=== PATIENT | female | born 2000 | race Caucasian/White ===

== ENCOUNTER 2023-03-02 19:38 | Emergency (ER) | payer OTHER, SELFPAY ==
[2023-03-02 19:39] VITALS: BP 120/81; PULSE 104; RESP 15; TEMP 36.5; O2SAT 100; BMI 20.7
--- NOTE | 2023-03-02 20:08 | US_ITS ---
STUDY: FIRST TRIMESTER OBSTETRICAL ULTRASOUND REASON FOR EXAM: Female, 22 years old vaginal bleeding LMP: 01/20/2023 TECHNIQUE: Transvaginal TECHNICAL QUALITY: Adequate. PRIOR ULTRASOUND: None. FINDINGS: There is visualization of a single gestational sac in a normal intrauterine position. The mean sac diameter (MSD) measures 18 mm, indicating an estimated gestational age (EGA) of 6 weeks, 5 days. The gestational sac shape is within normal limits. There is a visualized yolk sac. The yolk sac measures 3 mm. The placenta is non-visualized. There is visualization of a live embryo. The crown-rump length (CRL) measures 3 mm, indicating an estimated gestational age (EGA) of 6 weeks, 1 days. There is demonstrated cardiac activity with a heart rate of 112 bpm. The estimated gestation age (EGA) by LMP is 5 weeks, 6 days. The estimated date of delivery (ROBBIE) by LMP is 10/27/2023. The estimated gestation age (EGA) by US is 6 weeks, 3 days. The estimated date of delivery (ROBBIE) by US is 10/23/2023. The uterus measures 8.6 x 6.3 x 4.8 cm. There is no demonstrated uterine fibroid. The cervix is closed. The right ovary measures 1.6 x 1.8 x 3.2 cm. There is no right ovarian cyst. There is no visualized right adnexal mass or complex lesion. The left ovary measures 3.9 x 4.3 x 3.8 cm. 3.8 cm oval anechoic mass with increased through transmission consistent with theca lutein cyst. There is no visualized left adnexal mass or complex lesion. There is no fluid in the cul de sac. US/Transvaginal w/Preg US IMPRESSION: 1. Living intrauterine of 6 weeks 3 days as described above. 2. 3.8 cm left ovarian theca lutein cyst. Electronically Signed: Geoffrey Richard MD at 21:30 EST ,
--- NOTE | 2023-03-02 20:18 | ED.VIS.FEGU ---
HPI <MCKENNA Ocasio - Last Filed: 03/02/23 21:24> HPI - Female History of Present Illness Chief Complaint: Vag Bld, Preg Narrative Narrative: Patient is a 22-year-old female who is currently getting worked up for Von Willebrand disease presenting to the emergency department with complaints of lower abdominal pain, back pain as well as spotting. Patient states that she is 6 weeks , she however she is seeing [facility]. Patient states for the last 3 to 4 days has been having lower abdominal pain worse on the right side, as well is spotting that began today. She denies any significant bleeding however patient called her [employer] and is here for evaluation. She denies any fever or chills, chest pain or shortness of breath patient is 1, para 0, abortions 0. PFSH <MCKENNA Ocasio - Last Filed: 03/02/23 21:24> [facility] Medical History no medical history Home Medications NK 03/02/23 [History Last Taken Unknown] Allergy/AdvReac Type Severity Reaction Status Date / Time erythromycin base AdvReac Vomiting Verified 03/02/23 19:43 Surgical History no surgical history Social History Smoking Status: Never smoker ROS <MCKENNA Ocasio - Last Filed: 03/02/23 21:24> ROS ED ROS Narrative Constitutional: Negative for fever, chills, weight loss, weakness Eyes: Negative for vision loss, vision change, double vision ENT: Negative for any sore throat, ear pain, congestion Cardiovascular: Negative for any chest pain, tightness, palpitations Respiratory: Negative for any cough, sputum production, hemoptysis, dyspnea, dyspnea on exertion, orthopnea Gastrointestinal: Negative for any nausea, vomiting, diarrhea, constipation, blood in stool, blood in vomit. Positive lower right abdominal pain, flank pain : Negative for any urinary frequency, dysuria, retention, blood in urine. Positive vaginal bleeding Muscle skeletal: Negative for any myalgias, arthralgias, neck pain, back pain Neurological: Negative for any headache, syncope, paresthesias, dizziness Skin: Negative for any rashes, lumps, itching, abrasions, lacerations Psychiatric: Negative for any depression, anxiety, stress, suicidal ideation, homicidal ideation Hematologic: Negative for any easy bruising, excessive bruising, easy bleeding Allergies: Negative for any eczema, hives, rash EXAM <MCKENNA Ocasio - Last Filed: 03/02/23 21:24> Physical Exam Narrative Exam Narrative: Vital signs reviewed. HEET: Head normocephalic atraumatic, TMs clear bilaterally. Posterior pharynx is clear, moist mucous membranes. Nares clear bilaterally. Neck: Supple with no lymphadenopathy or tenderness. No signs of meningismus. Cardiac: Regular rate and rhythm no murmurs gallops or rubs, equal peripheral pulses bilaterally. Respiratory: Lungs clear to auscultation bilaterally. No chest tenderness. Abdomen: Soft, nontender, nondistended. No abdominal bruit or pulsatile masses. No hepatosplenomegaly Extremities: No peripheral edema, no signs of gross trauma or deformity. Active full range of motion of all extremities. Neuro: Cranial nerves II through XII intact, no focal neurological deficits. Skin: Clean dry and intact with no rash, purpura, petechiae, vesicles or pustules. Backs/flank: No CVA tenderness, no midline spinal tenderness, no deformity. Psych: Normal mood and affect. No SI, HI or acute psychosis. Const Vital Signs: 03/02/23 19:39 Temperature 97.7 F L Temperature Source Temporal Pulse Rate 104 H Respiratory Rate 15 Blood Pressure 120/81 H Blood Pressure Mean 94 Pulse Ox 100 Oxygen Delivery Method Room Air Positive well nourished and well developed General Appearance ED: well developed <Dr. Chris Harrison MD - Last Filed: 03/02/23 21:46> Physical Exam Const Vital Signs: 03/02/23 19:39 Temperature 97.7 F L Temperature Source Temporal Pulse Rate 104 H Respiratory Rate 15 Blood Pressure 120/81 H Blood Pressure Mean 94 Pulse Ox 100 Oxygen Delivery Method Room Air MDM <MCKENNA Ocasio - Last Filed: 03/02/23 21:24> [facility] Lab Data Labs: Laboratory Results - last 24 hr 03/02/23 20:25 WBC 5.3 RBC 4.53 Hgb 13.6 Hct 38.9 MCV 85.9 MCH 30.0 MCHC 35.0 RDW Std Deviation 35.8 RDW Coeff of [place] 11.4 L Plt Count 194 MPV 10.4 Immature Gran % (Auto) 0.800 Neut % (Auto) 76.3 H Lymph % (Auto) 15.4 L [place] % (Auto) 6.3 Eos % (Auto) 0.6 Baso % (Auto) 0.6 Absolute Neuts (auto) 4.0 Absolute Lymphs (auto) 0.81 L Nucleated RBC % 0 PT 15.1 H INR 1.2 HCG, Quant 63898 H Urine Color Yellow Urine Clarity Clear Urine pH 7.0 Ur Specific [place] 1.010 Urine Protein Negative Urine Glucose (UA) Normal Urine Ketones Negative Urine Occult Blood Negative Urine Nitrite Negative Urine Bilirubin Negative Urine Urobilinogen Normal Ur Leukocyte Esterase 25 H Urine RBC 0 SEEN Urine WBC 0-5 SEEN Ur Squamous Epith Cells 0-5 SEEN Urine Bacteria 0 SEEN Urine Mucus 0 SEEN Blood Type A POSITIVE Radiography Diagnostic Testing: Clinical Impression(s) from Imaging Studies Obstetrics Ultrasound 03/02/23 20:08 IMPRESSION: 1. Living intrauterine of 6 weeks 3 days as described above. 2. 3.8 cm left ovarian theca lutein cyst. Electronically Signed: Geoffrey Richard MD at 21:30 EST , Treatment and Re-Evaluation Narrative: Patient appears generally well, patient appears nontoxic, vital signs are stable. Presenting to the emergency department with lower abdominal pain, vaginal bleeding, patient is currently 6 weeks . Differential diagnosis includes intrauterine vaginal bleeding, threatened miscarriage, tubal . Patient will receive basic laboratory values, PT/INR just because the patient is currently getting worked up for a type of hemophilia. Patient will receive blood type to see if the patient needs RhoGAM, ultrasound transvaginal to rule out any ectopic . Patient's urinalysis was 25 leukocyte Estrace, negative for any bacteria, no nitrites. This was sent for culture. Patient's laboratory values showed normal CBC, PT/INR was within normal limits, hCG quant was 41,339. Patient's A positive blood type. Patient did receive her transvaginal ultrasound. <Dr. Chris Harrison MD - Last Filed: 03/02/23 21:46> [facility] Lab Data Attestation: I reviewed the patient's lab results. Labs: Laboratory Results - last 24 hr 03/02/23 20:25 WBC 5.3 RBC 4.53 Hgb 13.6 Hct 38.9 MCV 85.9 MCH 30.0 MCHC 35.0 RDW Std Deviation 35.8 RDW Coeff of [place] 11.4 L Plt Count 194 MPV 10.4 Immature Gran % (Auto) 0.800 Neut % (Auto) 76.3 H Lymph % (Auto) 15.4 L [place] % (Auto) 6.3 Eos % (Auto) 0.6 Baso % (Auto) 0.6 Absolute Neuts (auto) 4.0 Absolute Lymphs (auto) 0.81 L Nucleated RBC % 0 PT 15.1 H INR 1.2 HCG, Quant 74016 H Urine Color Yellow Urine Clarity Clear Urine pH 7.0 Ur Specific [place] 1.010 Urine Protein Negative Urine Glucose (UA) Normal Urine Ketones Negative Urine Occult Blood Negative Urine Nitrite Negative Urine Bilirubin Negative Urine Urobilinogen Normal Ur Leukocyte Esterase 25 H Urine RBC 0 SEEN Urine WBC 0-5 SEEN Ur Squamous Epith Cells 0-5 SEEN Urine Bacteria 0 SEEN Urine Mucus 0 SEEN Blood Type A POSITIVE Radiography Diagnostic Testing: Clinical Impression(s) from Imaging Studies Obstetrics Ultrasound 03/02/23 20:08 IMPRESSION: 1. Living intrauterine of 6 weeks 3 days as described above. 2. 3.8 cm left ovarian theca lutein cyst. Electronically Signed: Geoffrey Richard MD at 21:30 EST , Treatment and Re-Evaluation Narrative: Patient appears generally well, patient appears nontoxic, vital signs are stable. Presenting to the emergency department with lower abdominal pain, vaginal bleeding, patient is currently 6 weeks . Differential diagnosis includes intrauterine vaginal bleeding, threatened miscarriage, tubal . Patient will receive basic laboratory values, PT/INR just because the patient is currently getting worked up for a type of hemophilia. Patient will receive blood type to see if the patient needs RhoGAM, ultrasound transvaginal to rule out any ectopic . Patient's urinalysis was 25 leukocyte Estrace, negative for any bacteria, no nitrites. This was sent for culture. Patient's laboratory values showed normal CBC, PT/INR was within normal limits, hCG quant was 41,339. Patient's A positive blood type. Patient did receive her transvaginal ultrasound. Hunter: I have personally performed a face to face assessment of the patient and have reviewed the VANGIE Note. I performed a substantive portion of the visit including all aspects of the following. My rock findings include: History is with last known menstrual period starting on 01/20/2023, has been having some cramping lately off and on and now bleeding spotting today. No syncope or near syncope, vomiting, fevers or chills. Exam is well-appearing benign abdomen no tachycardia. Medical Decison Making quantitative hCG is high, ultrasound obtained shows single live IUP with heart tones 112, size is consistent with 6-week 3-day which is consistent with her dates overall. Blood type is a positive. Therefore RhoGAM not indicated. At this time patient stable for close outpatient follow-up she already has an appointment with [facility]. Other additions or changes: [None] Discharge Plan Triage Chief Complaint: Vag Bld, Preg ED Midlevel Provider: Nam Henry ED Provider: Chris Harrison Dx/Rx/DC Orders Clinical Impression: Threatened in first trimester Instructions: Miscarriage Threatened Prescriptions: No Action NK Primary Care Provider: Marko Bassett Referrals: Marko Bassett DO [Primary Care Provider] - Quynh Billy MD [Med Staff - Active Staff] - Keep Renaldo appointment Disposition Disposition: Home, Self Care
[2023-03-02 20:33] LABS: Bacteria 0 SEEN /hpf (None Seen); Mucous, Urine 0 SEEN /hpf (<or=2+); Red Blood Cells-Urine 0 SEEN /hpf (0-5)
[2023-03-02 20:41] LABS: Color, Urine Yellow (Yellow); Glucose, Dipstick Normal (Normal); Ketone-Dipstick Negative (Negative); Leukocyte Esterase-Dipstick 25 /ul (Negative); Nitrite-Dipstick Negative (Negative); Occult Blood-Urine Negative /ul (Negative); Protein-Dipstick Negative (Negative); Urine Bilirubin Dipstick Negative (Negative); Urine Clarity Clear (Clear); Urine Urobilinogen Normal (Normal)
[2023-03-02 20:45] LABS: Absolute Lymphocyte Count 0.81 X10^3/uL (0.83-4.51); Basophil# 0.03 X10^3/uL; Basophil% 0.6 % (0-1); Eosinophil# 0.03 X10^3/uL; Eosinophils% 0.6 % (0-5); Hematocrit 38.9 % (37-47); Hemoglobin 13.6 g/dL (12.0-15.0); Lymphocyte # 0.81 X10^3/ul (0.83-4.51); Lymphocyte % 15.4 % (19-41); Mean Corpuscular Volume 85.9 fL (81-99); Mean Platelet Vol. 10.4 fl (6.2-12.0); Monocyte# 0.33 X10^3/uL; Monocyte% 6.3 % (0-10); NRBC Flagged by Analyzer 0 % (0-5); Neutrophil # 4.01 X10^3/uL (2.7-7.7); Neutrophil % 76.3 % (47-70); Platelet Count 194 K/mm3 (150-450); RBC Distribution Width CV 11.4 % (11.6-14.6); RBC Distribution Width SD 35.8 fl (35.1-43.9); Red Blood Count 4.53 M/mm3 (4.2-5.4); White Blood Count 5.3 K/mm3 (4.4-11.0)
[2023-03-02 20:51] LABS: Squamous Epithelial Cells - UA 0-5 SEEN /hpf (5-10); White Blood Cells 0-5 SEEN /hpf (0-5)
[2023-03-02 21:04] LABS: International Normalized Ratio 1.2; Prothrombin Time (Protime)PT. 15.1 SECONDS (11.7-14.9)
[2023-03-02 21:17] LABS: hCG Titer Quant., Serum 41339 mIU/mL (1-3)
[2023-03-02 21:54] VITALS: BP 118/76; PULSE 79; RESP 18; O2SAT 100
== END 2023-03-02 21:55 | disposition home or self-care (01) ==
PROVIDERS: Nurse Practitioner; Emergency Provider Emergency Medicine; PCP Family Medicine; Visit Provider Emergency Medicine
DX: O20.0 Threatened abortion (principal); Z3A.01 Less than 8 weeks gestation of pregnancy
CPT/HCPCS: 76817; 81001; 84702; 85025; 85610; 86900; 86901; 93976; 99282; A4216

== ENCOUNTER → 2023-03-15 | Outpatient (CLI) | payer OTHER, SELFPAY ==
[2023-03-15 15:52] LABS: Absolute Lymphocyte Count 1.44 X10^3/uL (0.83-4.51); Absolute Neutrophil Count 5.5 X10^3/uL (2.0-7.7); Basophil# 0.08 X10^3/uL; Eosinophil# 0.11 X10^3/uL; Eosinophils% 1.4 % (0-5); Hematocrit 39.1 % (37-47); Hemoglobin 13.2 g/dL (12.0-15.0); Lymphocyte # 1.44 X10^3/ul (0.83-4.51); Lymphocyte % 18.7 % (19-41); Mean Corp Hgb Conc 33.8 g/dL (32-36); Mean Corpuscular Hgb 29.1 pg (27.0-32.0); Mean Corpuscular Volume 86.1 fL (81-99); Mean Platelet Vol. 10.5 fl (6.2-12.0); Monocyte# 0.54 X10^3/uL; NRBC Flagged by Analyzer 0 % (0-5); Neutrophil # 5.45 X10^3/uL (2.7-7.7); Platelet Count 207 K/mm3 (150-450); RBC Distribution Width CV 11.3 % (11.6-14.6); RBC Distribution Width SD 35.4 fl (35.1-43.9); Red Blood Count 4.54 M/mm3 (4.2-5.4); White Blood Count 7.7 K/mm3 (4.4-11.0)
[2023-03-15 18:21] LABS: HIV - WCH Non-Reactive (Nonreactive); Hepatitis B Surface Antigen Non-Reactive (Nonreactive); Hepatitis C Antibody Non-Reactive (Nonreactive); Rubella IgG Reactive (Nonreactive); Syphilis Antibodies Equiv
[2023-03-19 05:08] LABS: Chlamydia By Nucleic Acid AMP Negative (Negative); Gonococcus By Nucleic Acid AMP Negative (Negative)
== END | disposition home or self-care (01) ==
PROVIDERS: PCP Family Medicine; Referring Provider Registered Nurse; Visit Provider Registered Nurse
DX: Z34.90 Encounter for supervision of normal pregnancy, unspecified, unspecified trimester (principal)
CPT/HCPCS: 36415; 85025; 86703; 86762; 86780; 86803; 86850; 86900; 86901; 87086; 87088; 87340; 87491; 87591

== ENCOUNTER → 2023-06-04 | Outpatient (CLI) | payer SELFPAY, OTHER ==
--- NOTE | 2023-06-04 15:26 | US_ITS ---
STUDY: SECOND AND THIRD TRIMESTER OBSTETRICAL ULTRASOUND REASON FOR EXAM: Female, 22 years old Anatomy LMP: Unknown. TECHNIQUE: Transabdominal and Transvaginal TECHNICAL QUALITY: Adequate. PRIOR ULTRASOUND: None. FINDINGS: There is a single intrauterine fetus. The fetus is in a transverse lie with the head on the maternal right side. There is demonstrated cardiac activity with a heart rate of 157 bpm. There is a normal amniotic fluid volume. The largest amniotic fluid pocket measures 7.0 x 2.4 cm. The placenta is posterior in location and is not low lying. There are Grade 0 placental changes. The cervix measures 3.7 cm in length on transvaginal exam. The adnexal regions are not visualized. BIOMETRY: BPD: 4.7 cm: 20 weeks, 1 days HC: 17.5 cm: 20 weeks, 0 days AC: 13.5 cm: 19 weeks, 0 days FL: 2.7 cm: 18 weeks, 2 days age by current US: 19 weeks, 1 days. ROBBIE by current US: October 28, 2023. Estimated weight: 260 grams, +/- 39 grams. ANATOMY: Gender: Female Cranium: Normal lateral ventricles. Normal choroid plexus. Normal cerebellum. Normal cisterna magna. Normal face, nose and lips. Chest: Normal 4-chamber heart. Abdomen/Pelvis: Normal diaphragm. Normal stomach. Normal abdominal wall. Normal cord insertion. Normal 3 vessel cord. Normal kidneys. Normal bladder. Spine: Normal cervical spine. Normal thoracic spine. Normal lumbar spine. Normal sacrum. Extremities: Normal bilateral upper extremities. Normal bilateral lower extremities. IMPRESSION: Single intrauterine gestation 19 weeks 1 day with estimated due date October 28, 2023. No anomalies on routine anatomic survey. Electronically Signed: Chris Carrasco MD at 18:11 EDT , STUDY: SECOND AND THIRD TRIMESTER OBSTETRICAL ULTRASOUND REASON FOR EXAM: Female, 22 years old Anatomy LMP: Unknown. TECHNIQUE: Transabdominal and Transvaginal TECHNICAL QUALITY: Adequate. PRIOR ULTRASOUND: None. FINDINGS: There is a single intrauterine fetus. The fetus is in a transverse lie with the head on the maternal right side. There is demonstrated cardiac activity with a heart rate of 157 bpm. There is a normal amniotic fluid volume. The largest amniotic fluid pocket measures 7.0 x 2.4 cm. The placenta is posterior in location and is not low lying. There are Grade 0 placental changes. The cervix measures 3.7 cm in length on transvaginal exam. The adnexal regions are not visualized. BIOMETRY: BPD: 4.7 cm: 20 weeks, 1 days HC: 17.5 cm: 20 weeks, 0 days AC: 13.5 cm: 19 weeks, 0 days FL: 2.7 cm: 18 weeks, 2 days age by current US: 19 weeks, 1 days. ROBBIE by current US: October 28, 2023. Estimated weight: 260 grams, +/- 39 grams. ANATOMY: Gender: Female Cranium: Normal lateral ventricles. Normal choroid plexus. Normal cerebellum. Normal cisterna magna. Normal face, nose and lips. Chest: Normal 4-chamber heart. Abdomen/Pelvis: Normal diaphragm. Normal stomach. Normal abdominal wall. Normal cord insertion. Normal 3 vessel cord. Normal kidneys. Normal bladder. Spine: Normal cervical spine. Normal thoracic spine. Normal lumbar spine. Normal sacrum. Extremities: Normal bilateral upper extremities. Normal bilateral lower extremities. US/OB Anatomy w/ Transvaginal
== END | disposition home or self-care (01) ==
LOC: US 15:25
PROVIDERS: PCP Family Medicine; Referring Provider Obstetrics & Gynecology; Visit Provider Obstetrics & Gynecology
DX: Z34.90 Encounter for supervision of normal pregnancy, unspecified, unspecified trimester (principal)
CPT/HCPCS: 76805; 76817

== ENCOUNTER 2023-07-10 20:35 | Outpatient (CLI) | payer OTHER, SELFPAY ==
[2023-07-10 20:47] VITALS: PULSE 126; O2SAT 100
[2023-07-10 20:48] VITALS: RESP 16; TEMP 37.1
[2023-07-10 20:53] VITALS: BP 130/82; PULSE 116
[2023-07-10 20:56] VITALS: TEMP 37.1
[2023-07-10] MEDS: cycloBENZAPRine HCl 5 MG TABLET PO (21:29)
[2023-07-10] MEDS: SimETHICONE 80 MG Chewable Tablet PO (21:29)
[2023-07-10 21:31] LABS: Absolute Lymphocyte Count 1.31 X10^3/uL (0.83-4.51); Absolute Neutrophil Count 4.5 X10^3/uL (2.0-7.7); Basophil# 0.05 X10^3/uL; Basophil% 0.8 % (0-1); Eosinophils% 1.5 % (0-5); Hematocrit 34.1 % (37-47); Hemoglobin 11.5 g/dL (12.0-15.0); Lymphocyte # 1.31 X10^3/ul (0.83-4.51); Lymphocyte % 19.9 % (19-41); Mean Corp Hgb Conc 33.7 g/dL (32-36); Mean Corpuscular Hgb 30.8 pg (27.0-32.0); Mean Corpuscular Volume 91.4 fL (81-99); Mean Platelet Vol. 9.9 fl (6.2-12.0); Monocyte# 0.54 X10^3/uL; Monocyte% 8.2 % (0-10); NRBC Flagged by Analyzer 0 % (0-5); Neutrophil # 4.51 X10^3/uL (2.7-7.7); Neutrophil % 68.7 % (47-70); Platelet Count 163 K/mm3 (150-450); RBC Distribution Width CV 12.3 % (11.6-14.6); RBC Distribution Width SD 41.2 fl (35.1-43.9); Red Blood Count 3.73 M/mm3 (4.2-5.4); White Blood Count 6.6 K/mm3 (4.4-11.0)
[2023-07-10 21:48] VITALS: BMI 23.4
[2023-07-10 21:55] LABS: ALB/GLOB Ratio 0.9 RATIO (0.9-2.4); AST(SGOT) 24 U/L (15-37); Alanine Aminotransfer ALT/SGPT 31 U/L (13-56); Albumin, Serum 3.1 g/dL (3.2-5.0); Alkaline Phosphatase 52 U/L (45-117); Amylase 86 U/L (25-115); Anion Gap 7 (5-15); BUN 11 mg/dL (7-18); BUN/Creat Ratio 13.8 RATIO (10-20); Calcium,Total 8.8 mg/dL (8.5-10.1); Chloride 111 mmol/L (98-107); EST Glomerular Filtration Rate 97 mL/min (>60); Est Glom Filt Rate - Afr Amer 118 mL/min (>60); Estimated Creatinine Clearance 96.86 ml/min; Globulin 3.3 g/dL (2.2-4.2); Glucose 94 mg/dL (74-106); Lipase 45 U/L (13-75); Potassium 3.4 mmol/L (3.5-5.1); Protein, Total 6.4 g/dL (6.4-8.2); Sodium Level 141 mmol/L (136-145)
--- NOTE | 2023-07-10 23:43 | OB.TRI.HP_ITS ---
HPI - General General Date of Admission: 07/10/23 HPI Narrative ELYSE BOUDREAUX, is a 22 y/o @ 28 weeks 3 days F who presents to L&D with periumbilical (belly button) pain that started today and got progressively worse. She states that she was at a wedding all day. The nurse that is taking care of her states that she does not have tenderness to palpation on exam and the pain is more reported to be left upper quadrant than periumbilical. She denies vomiting, diarrhea, nausea, difficulty breathing, or decreased movement. She also denies loss of fluid or vaginal bleeding. orders for cbc, cmp, amylase, and lipase were given to the nurse to collect stat and to perform an NST. The patient was also offered Flexeril for possible abdominal wall strain and simethicone for possible gas. Maternal Data Information ROBBIE Calculator Estimated Delivery Date Method Current WG Current Estimate 10/27/23 LMP (Certain) 24w 6d PFSH PFSH Home Medications ?Medication ?Instructions ?Recorded ?Last Taken ?Type vitamins no.163-iron 1 tab PO DAILY 03/12/23 07/10/23 08:00 History bis-gly 20 mg-folate no.10 1 mg 1 TAB tablet (PNV Tabs 20-1) Allergy/AdvReac Type Severity Reaction Status Date / Time erythromycin base AdvReac Vomiting Verified 07/10/23 21:48 Family History Grandfather Heart disease Maternal Grandfather Heart disease Paternal Sister Bleeding disorder Von Willebrand Stillborn, normal Social History adopted: No household members: spouse current occupational status: unemployed pets and animals: No history of recent travel: No sexually active: Yes Smoking Status: Never smoker alcohol intake: never substance use type: does not use well-balanced diet: daily or most days caffeine: No eating out: rarely or never during the past year weight has: remained stable what type of physical activity do you participate in: none anny/pentecostalism: Kai seatbelt use: sometimes do you feel safe at home: Yes additional social history: Guerda History 1 Elective abortions Hx Para 0 Spontaneous abortions Hx # Term Pregnancies Ectopic pregnancies Hx # Pregnancies Multiple births # of living children Visit Details Expected Delivery Route/Plan Labor Preferences- CB/BF classes: encouraged labor support person: Guerda labor intervention preferences: [] pain management options preferred: limited but ok w/epidural cut cord/dad catch: cord : yes PP control planned: discussed discussed possible routes of delivery and associated risks: [] special requests: [] Plans Covid status: [] Flu vaccine: [] Tdap vaccine: [] Rhogam: na LARC form signed: yes Problem list reviewed and updated with the most current plan of care details and appropriate orders placed. Relevant counseling for the gestational age provided. Continue routine care and follow up unless otherwise noted in visit notes/problem list details OB Flowsheet Initial Weight: 116 lb Date -?-?-?-?-?-?-?-?-?-?-?-?- EGA Weight BP Urine Prot -?-?-?-?-?-?-?-?-?-?-?-?- Glucose FHR FuHt Pres Dilation -?-?-?--?-?-?-?-?-?-?-?-?- Effaced St Visit Note 03/15/23 -?-?-?-?-?-?-?-?-?-?-?-?- 7w 5d 116 lb 4 oz (+4 oz) 120/79 -?-?-?-?-?-?-?-?-?-?-?-?- 168 -?-?-?-?-?-?-?-?-?-?-?-?- LC- CRL con with LMP. declines nipt. does not want pap until pp. hemeonc referral for recent diagnosis for von willibrands. LC- CRL con with LMP. declin es nipt. does not want pap until pp. hemeonc referral for recent diagnosis for von willebrands. 04/12/23 -?-?-?-?-?-?-?-?-?-?-?-?- 11w 5d 115 lb 4 oz (-12 oz) 122/79 Negative -?-?-?-?-?-?-?-?-?-?-?-?- Negative 161 -?-?-?-?-?-?-?-?-?-?-?-?- JV- needs to see [facility] (sis sees them) for von willebrands. consult request sent. has hemorrhoid. treatment discussed. no spotting, wants to mop floors again. 05/08/23 -?-?-?-?-?-?-?-?-?-?-?-?- 15w 3d 119 lb 8 oz (+3 lb 8 oz) 120/80 Negative -?-?-?-?-?-?-?-?-?-?-?-?- Negative 147 -?-?-?-?-?-?-?-?-?-?-?-?- JV- saw hem onc today and blood work is pending. anatomy scan is on 05/20/23 06/07/23 -?-?-?-?-?-?-?-?-?-?-?-?- 19w 5d 126 lb (+10 lb) 107/65 -?-?-?-?-?-?-?-?-?-?-?-?- 150 -?-?-?-?-?-?-?-?-?-?-?-?- SM- no vb crampi ng 07/03/23 -?-?--?-?-?-?-?-?-?-?-?-?- 23w 3d 134 lb 4 oz (+18 lb 4 oz) 116/72 Negative -?-?-?-?-?-?-?-?-?-?-?-?- Negative 152 -?-?-?-?-?-?-?-?-?-?-?-?- MH-No VB, LOF. G ood FM. Larc. Denies concerns ROS Constitutional Constitutional: Reports systems reviewed and no addt'l complaints, except as documented Gastrointestinal Gastrointestinal: Denies bloating, constipation, cramping, diarrhea, nausea or vomiting Genitourinary Genitourinary: Reports other Details: Denies vaginal odor, vaginal bleeding, or vaginal discharge ; Denies difficulty urinating or flank pain NST FHR Rate Baby A Baseline: 10 Variability:: Moderate Accelerations:: 15 x 15 Decelerations:: None NST Reactive:: Yes FHR Category:: Category I Uterine Activity:: no contractions Assessment & Plan (1) Abdominal pain affecting , antepartum: (2) Rubella non-immune status, antepartum: COMMENT: reviewed precautions, recommend MMR (3) Von Willebrand disease: COMMENT: heme onc referral to [facility], DDAVP not indicated per them. plan TXA at delivery. plan anesthesia consult (4) Supervision of high-risk : QUALIFIERS: Trimester: second trimester Qualified Code(s): O09.92 - Supervision of high risk , unspecified, second trimester COMMENT: PRR , ROBBIE 10/27/23, surprise Guerda (5) : QUALIFIERS: Weeks of gestation: 23 weeks Qualified Code(s): Z3A.23 - 23 weeks gestation of COMMENT: declined genetic & ntd, carrier testing. nl anatomy PLAN: Plan vital stable, labs normal, pain resolved with medications given ok to dc to home Charges/Coding Multi Select Codes Urinary/Genital Urinary/Genital CPT Codes: 31658-57 non-stress test Interp
== END 2023-07-10 23:00 | disposition home or self-care (01) ==
LOC: WPOUT 20:39 → WP 20:44
PROVIDERS: PCP Family Medicine; Referring Provider Obstetrics & Gynecology; Visit Provider Obstetrics & Gynecology
DX: O99.891 Other specified diseases and conditions complicating pregnancy (principal); D68.00 Von Willebrand disease, unspecified; O99.113 Other diseases of the blood and blood-forming organs and certain disorders involving the immune mechanism complicating pregnancy, third trimester; R10.33 Periumbilical pain; Z3A.28 28 weeks gestation of pregnancy
CPT/HCPCS: 36415; 59025; 59050; 80053; 82150; 83690; 85025; 99221; G0378

== ENCOUNTER → 2023-07-30 | Outpatient (CLI) | payer OTHER, SELFPAY ==
[2023-07-30 14:49] LABS: Absolute Lymphocyte Count 1.36 X10^3/uL (0.83-4.51); Absolute Neutrophil Count 4.7 X10^3/uL (2.0-7.7); Basophil# 0.05 X10^3/uL; Basophil% 0.7 % (0-1); Eosinophil# 0.14 X10^3/uL; Eosinophils% 2.1 % (0-5); Hemoglobin 11.2 g/dL (12.0-15.0); Lymphocyte # 1.36 X10^3/ul (0.83-4.51); Lymphocyte % 20.2 % (19-41); Mean Corp Hgb Conc 32.9 g/dL (32-36); Mean Corpuscular Hgb 30.3 pg (27.0-32.0); Mean Corpuscular Volume 91.9 fL (81-99); Mean Platelet Vol. 9.9 fl (6.2-12.0); Monocyte% 5.9 % (0-10); NRBC Flagged by Analyzer 0 % (0-5); Neutrophil # 4.69 X10^3/uL (2.7-7.7); Neutrophil % 69.8 % (47-70); Platelet Count 187 K/mm3 (150-450); RBC Distribution Width SD 40.7 fl (35.1-43.9); White Blood Count 6.7 K/mm3 (4.4-11.0)
[2023-07-30 16:28] LABS: Glucose Challenge Gest 1H 50g 109 mg/dL (70-140)
[2023-07-30 16:59] LABS: HIV - WCH Non-Reactive (Nonreactive); Syphilis Antibodies Reactive
== END | disposition home or self-care (01) ==
PROVIDERS: PCP Family Medicine; Referring Provider Nurse Practitioner Women's Health; Visit Provider Nurse Practitioner Women's Health
DX: Z34.92 Encounter for supervision of normal pregnancy, unspecified, second trimester (principal); Z3A.23 23 weeks gestation of pregnancy
CPT/HCPCS: 36415; 82950; 85025; 86703; 86780

== ENCOUNTER → 2023-08-27 | Outpatient (CLI) | payer OTHER, SELFPAY ==
[2023-09-02 16:09] LABS: Anti-Cardiolipin Ab, IgG, Qn < 9 GPL U/mL (0-14); Anti-Cardiolipin Ab, IgM, Qn < 9 MPL U/mL (0-12); Beta-2-Glycoprotein I IgA <9 (0-25); Beta-2-Glycoprotein I IgG <9 (0-20); Beta-2-Glycoprotein I IgM <9 (0-32); Dilute Prothrombin Time (dPT) 33.1 sec (0.0-47.6); Dilute Russell Viper Venom 34.3 sec (0.0-47.0); Factor VIII Activity 103 % (56-140); Interpretation Comment: (.); PTT-LA 36.6 sec (0.0-43.5); Thrombin Time 14.9 sec (0.0-23.0); dPT Confirm Ratio 1.03 Ratio (0.00-1.34)
== END | disposition home or self-care (01) ==
LOC: PAVLAB 15:11
PROVIDERS: PCP Family Medicine; Referring Provider Obstetrics & Gynecology; Visit Provider Obstetrics & Gynecology
DX: N96 Recurrent pregnancy loss (principal); R76.8 Other specified abnormal immunological findings in serum
CPT/HCPCS: 36415; 85240; 86146; 86147

== ENCOUNTER 2023-08-28 20:20 | Outpatient (CLI) | payer OTHER, SELFPAY ==
[2023-08-28 20:32] VITALS: BMI 24.7
[2023-08-28 20:45] VITALS: BP 125/74; PULSE 90; RESP 16; TEMP 36.9
[2023-08-28 20:52] LABS: Mucous, Urine 0 SEEN /hpf (<or=2+); Squamous Epithelial Cells - UA 0 SEEN /hpf (5-10)
[2023-08-28 21:05] LABS: Color, Urine Yellow (Yellow); Glucose, Dipstick Normal (Normal); Ketone-Dipstick Negative (Negative); Leukocyte Esterase-Dipstick 500 /ul (Negative); Nitrite-Dipstick Negative (Negative); Occult Blood-Urine 10 /ul (Negative); Protein-Dipstick Negative (Negative); Specific Gravity, Urine 1.005 (1.002-1.030); Urine Bilirubin Dipstick Negative (Negative); Urine Clarity Clear (Clear); Urine Urobilinogen Normal (Normal)
[2023-08-28 21:20] LABS: ROM Internal Control Test YES-OK TO RESULT pt. (Internal QC); ROM Patient Test Negative (Negative); Record Kit Lot#, ROM+ K1866
--- NOTE | 2023-08-28 21:32 | OB.TRI.PN_ITS ---
Progress Notes Date of Service: 08/28/23 Progress Note: Patient presents for triage evaluation secondary to vaginal bleeding FHT: 130 Moderate variability reactive no decelerations category I tracing [place]: no regular Contractions Assessment and plan: vaginal bleeding Reactive NST, reassuring maternal and status patient discharged to home to follow-up as scheudled. See problem list details for additional plan information. Laboratory Studies: Laboratory Tests 08/28/23 Range/Units 20:35 Vag Amniotic Fld Detect Negative (Negative) Charges/Coding Procedures Urinary/Genital 52xxx-59xxx: 46036-19 non-stress test Interp
[2023-08-28 21:47] LABS: Bacteria RARE /hpf (None Seen); Red Blood Cells-Urine 0-5 SEEN /hpf (0-5); White Blood Cells 5-10 SEEN /hpf (0-5)
== END 2023-08-28 22:05 | disposition home or self-care (01) ==
LOC: WPOUT 20:21 → WP 20:22
PROVIDERS: PCP Family Medicine; Visit Provider Obstetrics & Gynecology
DX: O46.90 Antepartum hemorrhage, unspecified, unspecified trimester (principal); Z3A.00 Weeks of gestation of pregnancy not specified
CPT/HCPCS: 59025; 59050; 81001; 84112; 87086; 87088; 99221; G0378

== ENCOUNTER → 2023-10-07 | Outpatient (CLI) | payer OTHER, SELFPAY | END | disposition home or self-care (01) | LOC: LABSPEC 12:05 | PROVIDERS: PCP Family Medicine; Referring Provider Obstetrics & Gynecology; Visit Provider Obstetrics & Gynecology | DX: O09.93 Supervision of high risk pregnancy, unspecified, third trimester (principal); Z3A.00 Weeks of gestation of pregnancy not specified | CPT/HCPCS: 87081 ==

== ENCOUNTER 2023-10-28 15:04 | Inpatient (IN) | payer SELFPAY, OTHER ==
[2023-10-28] VITALS (13 sets, daily range): BP systolic 123–138; BP diastolic 77–83; PULSE 100–122; RESP 16–17; TEMP 36.1–37.2; O2SAT 99–100; BMI 25.6
[2023-10-28 15:43] LABS: ROM Internal Control Test YES-OK TO RESULT pt. (Internal QC); ROM Patient Test Negative (Negative); Record Kit Lot#, ROM+ K1866
[2023-10-28] MEDS: Lactated Ringers 1,000 ML 50 ML IV (16:40)
[2023-10-28 17:06] LABS: Absolute Lymphocyte Count 1.66 X10^3/uL (0.83-4.51); Absolute Neutrophil Count 6.7 X10^3/uL (2.0-7.7); Basophil# 0.08 X10^3/uL; Basophil% 0.9 % (0-1); Eosinophil# 0.05 X10^3/uL; Eosinophils% 0.5 % (0-5); Hematocrit 36.1 % (37-47); Lymphocyte # 1.66 X10^3/ul (0.83-4.51); Lymphocyte % 18.2 % (19-41); Mean Corp Hgb Conc 33.2 g/dL (32-36); Mean Corpuscular Hgb 29.3 pg (27.0-32.0); Mean Corpuscular Volume 88.3 fL (81-99); Mean Platelet Vol. 10.2 fl (6.2-12.0); Monocyte# 0.61 X10^3/uL; Monocyte% 6.7 % (0-10); NRBC Flagged by Analyzer 0 % (0-5); Neutrophil # 6.65 X10^3/uL (2.7-7.7); Neutrophil % 72.8 % (47-70); Platelet Count 181 K/mm3 (150-450); RBC Distribution Width CV 12.8 % (11.6-14.6); RBC Distribution Width SD 41.1 fl (35.1-43.9); Red Blood Count 4.09 M/mm3 (4.2-5.4); White Blood Count 9.1 K/mm3 (4.4-11.0)
--- NOTE | 2023-10-28 17:51 | HP.PCM.OB_ITS ---
HPI - General General Date of Admission: 10/28/23 HPI Narrative ELYSE BOUDREAUX, is a 23 F who presents with oligo 3.4cm, questionable LOF but negative rom plus. no vb admits some decreased movement. Maternal Data Information ROBBIE Calculator Estimated Delivery Date Method Current WG Current Estimate 10/27/23 LMP (Certain) 40w 1d PFSH PFSH Medical History (Updated 10/28/23 @ 16:21 by Lulú Bernstein) Oligohydramnios Headache Home Medications ?Medication ?Instructions ?Recorded ?Last Taken ?Type vitamins no.163-iron 1 tab PO DAILY 03/12/23 10/28/23 08:00 History bis-gly 20 mg-folate no.10 1 mg 1 TAB tablet (PNV Tabs 20-1) Allergy/AdvReac Type Severity Reaction Status Date / Time erythromycin base AdvReac Vomiting Verified 10/28/23 15:31 Family History Grandfather Heart disease Maternal Grandfather Heart disease Paternal Sister Bleeding disorder Von Willebrand Stillborn, normal Social History adopted: No household members: spouse current occupational status: unemployed pets and animals: No history of recent travel: No sexually active: Yes Smoking Status: Never smoker alcohol intake: never substance use type: does not use well-balanced diet: daily or most days caffeine: No eating out: rarely or never during the past year weight has: remained stable what type of physical activity do you participate in: none anny/protestant: [facility] seatbelt use: sometimes do you feel safe at home: Yes additional social history: Guerda History 1 Elective abortions Hx Para 0 Spontaneous abortions Hx # Term Pregnancies Ectopic pregnancies Hx # Pregnancies Multiple births # of living children Visit Details Expected Delivery Route/Plan Labor Preferences- CB/BF classes: encouraged labor support person: Guerda labor intervention preferences: limited preferred pain management options preferred: limited but ok w/epidural cut cord/dad catch: cord : yes PP control planned: discussed discussed possible routes of delivery and associated risks: [] special requests: [] Plans Covid status: [] Flu vaccine: [] Tdap vaccine: declines Rhogam: na LARC form signed: yes Problem list reviewed and updated with the most current plan of care details and appropriate orders placed. Relevant counseling for the gestational age provided. Continue routine care and follow up unless otherwise noted in visit notes/problem list details OB Flowsheet Initial Weight: 116 lb Date -?-?-?-?-?-?-?-?-?-?-?--?- EGA Weight BP Urine Prot -?-?-?-?-?-?-?-?-?-?-?-?- Glucose FHR FuHt Pres Dilation -?-?-?-?-?-?-?-?-?-?-?-?- Effaced St Visit Note 03/15/23 -?-?-?-?-?-?-?-?-?-?-?-?- 7w 5d 116 lb 4 oz (+4 oz) 120/79 -?-?-?-?-?-?-?-?-?-?-?-?- 168 -?-?-?-?-?-?-?-?-?-?-?-?- LC- CRL con with LMP. declines nipt. does not want pap until pp. hemeonc referral for recent diagnosis for von willibrands. LC- CRL con with LMP. declin es nipt. does not want pap until pp. hemeonc referral for recent diagnosis for von willebrands. 04/12/23 -?-?-?-?-?-?-?-?-?-?-?-?- 11w 5d 115 lb 4 oz (-12 oz) 122/79 Negative -?-?-?-?-?-?-?-?-?-?-?-?- Negative 161 -?-?-?-?-?-?-?-?-?-?-?-?- JV- needs to see [facility] (sis sees them) for von willebrands. consult request sent. has hemorrhoid. treatment discussed. no spotting, wants to mop floors again. 05/08/23 -?-?-?-?-?-?-?-?-?-?-?-?- 15w 3d 119 lb 8 oz (+3 lb 8 oz) 120/80 Negative -?-?-?-?-?-?-?-?-?-?-?-?- Negative 147 -?-?-?-?-?-?-?-?-?-?-?-?- JV- saw hem onc today and blood work is pending. anatomy scan is on 05/20/23 06/07/23 -?-?-?-?-?-?-?-?-?-?-?-?- 19w 5d 126 lb (+10 lb) 107/65 -?-?-?-?-?-?-?-?-?-?-?-?- 150 -?-?-?-?-?-?-?-?-?-?-?-?- SM- no vb carlosi ng 07/03/23 -?-?-?-?-?-?-?-?-?-?-?-?- 23w 3d 134 lb 4 oz (+18 lb 4 oz) 116/72 Negative -?-?-?-?-?-?-?-?-?-?-?-?- Negative 152 -?-?-?-?-?-?-?-?-?-?-?-?- MH-No VB, LOF. G ood FM. Larc. Denies concerns 07/30/23 -?-?-?-?-?-?-?-?-?-?-?-?- 27w 2d 139 lb 8 oz (+23 lb 8 oz) 127/81 Negative -?-?-?-?-?-?-?-?-?-?-?-?- Negative 150 27 -?-?-?-?-?-?-?-?-?-?-?-?- KW- no vb/ctx. g ood fm. 28 wk labs pending 08/12/23 -?-?-?-?-?-?-?-?-?-?-?-?- 29w 1d 142 lb (+26 lb) 116/71 Negative -?-?-?-?-?-?-?-?-?-?-?-?- Negative 150 29 -?-?-?-?-?-?-?-?-?-?-?-?- SM- no vb lof go od fm n oregular ctx 08/27/23 -?-?-?-?-?-?-?-?-?-?-?-?- 31w 2d 142 lb (+26 lb) 120/77 Negative -?-?-?-?-?-?-?-?-?-?-?-?- Negative 140 31 -?-?--?-?-?-?-?-?-?-?-?-?- SM- no vb lof go od fm no regular ctx SM- no vb lof good fm no reg ular ctx co leg cramping reviewed supportive care 09/12/23 -?-?-?-?-?-?-?-?-?-?-?-?- 33w 4d 145 lb 8 oz (+29 lb 8 oz) 104/72 Negative -?-?-?-?-?-?-?-?-?-?-?-?- Negative 145 33 -?-?-?-?-?-?-?-?-?-?-?-?- -No VB, LOF. G ood FM. Denies concerns 09/25/23 -?-?-?-?-?-?-?-?-?-?-?-?- 35w 3d 146 lb (+30 lb) 108/75 Negative -?-?-?-?-?-?-?-?-?-?-?-?- Negative 140 35 -?-?-?-?-?-?-?-?-?-?-?-?- SM- no vb lof go od fm no regular ctx discussed preferences 10/07/23 -?-?-?-?-?-?-?-?-?-?-?-?- 37w 1d 148 lb (+32 lb) 122/55 Negative -?-?-?-?-?-?-?-?-?-?-?-?- Negative 141 36 Cephalic 0 -?-?-?-?-?-?-?-?-?-?-?-?- JV- pt complains of vaginal burining and discharge. She tried monistat 7 a few weeks ago but thinks she has yest again. on exam there is a thick amount of yeast present. rx for terconazole cream sent to pharmacy. gbs collected. 10/14/23 -?-?-?-?-?-?-?-?-?-?-?-?- 38w 1d 151 lb (+35 lb) 123/79 Negative -?-?-?-?-?-?-?-?-?-?-?-?- Negative 140 37 Cephalic 1 .5 -?-?-?-?-?-?-?-?-?-?-?-?- 50 -1 SM- no vb lof good fm no reuglar ctx 10/23/23 -?-?-?-?-?-?-?-?-?-?-?-?- 39w 3d 150 lb (+34 lb) 129/82 Negative -?-?-?-?-?-?-?-?-?-?-?-?- Negative 150 38 Cephalic 1 .5 -?-?-?-?-?-?-?-?-?-?-?-?- SM- no vb lof go od fm no regular ctx 10/28/23 -?-?-?-?-?-?-?-?-?-?-?-?- 40w 1d 150 lb (+34 lb) 132/87 -?-?-?-?-?-?-?-?-?-?-?-?- 150 36 Cephalic 2.5 -?-?-?-?-?-?-?-?-?-?-?-?- 70 -1 SM- no vb lof good fm no reuglar ctx increased discharge SM- no vb lof good fm no reu glar ctx increased discharge, rom plus sent and britney 3.4 cm Vital Signs Vital Signs Vital Signs: 10/28/23 16:02 10/28/23 16:02 10/28/23 16:02 Temperature Pulse Rate 111 H 116 H Respiratory Rate Blood Pressure 135/77 H BP Systolic 135 BP Diastolic 77 Pulse Ox 10/28/23 16:02 10/28/23 16:02 10/28/23 16:09 Temperature 99.0 F Pulse Rate 122 H Respiratory Rate Blood Pressure BP Systolic BP Diastolic Pulse Ox 100 10/28/23 16:09 10/28/23 16:14 10/28/23 16:14 Temperature Pulse Rate 105 H Respiratory Rate Blood Pressure BP Systolic BP Diastolic Pulse Ox 100 100 10/28/23 16:45 10/28/23 16:45 10/28/23 16:59 Temperature Pulse Rate 106 H 116 H Respiratory Rate Blood Pressure BP Systolic BP Diastolic Pulse Ox 100 10/28/23 16:59 10/28/23 17:04 10/28/23 17:04 Temperature Pulse Rate 101 H Respiratory Rate Blood Pressure BP Systolic BP Diastolic Pulse Ox 100 99 10/28/23 17:41 10/28/23 17:42 10/28/23 17:42 Temperature Pulse Rate 101 H Respiratory Rate 17 Blood Pressure 129/78 H BP Systolic 129 BP Diastolic 78 Pulse Ox 10/28/23 17:42 Temperature 98.2 F Pulse Rate Respiratory Rate Blood Pressure BP Systolic BP Diastolic Pulse Ox Weight Weight: 149 lb 7.574 oz Body Mass Index (BMI) 25.6 Labs Labs Labs: Blood Type A POSITIVE Antibody Screen NEGATIVE Hct 36.1 % (37-47) L Hgb 12.0 g/dL (12.0-15.0) Obstetrics Ultrasound Syphilis Total Ab Reactive Rubella IgG Antibody Reactive (Nonreactive) Hep Bs Antigen Non-Reactive (Nonreactive) Hepatitis C Antibody Non-Reactive (Nonreactive) Chlamydia DNA (ALAINA) Negative (Negative) N.gonorrhoeae DNA (ALAINA) Negative (Negative) HIV 1&2 Antibody Non-Reactive (Nonreactive) Glucose 1 Hr 50 gm 109 mg/dL (70-140) Miscellaneous Test Assessment & Plan (1) : QUALIFIERS: Weeks of gestation: 40 weeks Qualified Code(s): Z3A.40 - 40 weeks gestation of COMMENT: declined genetic & ntd, carrier testing. nl anatomy (2) Supervision of high-risk : QUALIFIERS: Trimester: third trimester Qualified Code(s): O09.93 - Supervision of high risk , unspecified, third trimester COMMENT: PRR , ROBBIE 10/27/23, surprise Guerda (3) Von Willebrand disease: COMMENT: heme onc referral to [facility], DDAVP not indicated per them. plan TXA at delivery. plan anesthesia consult- DDAVP if desires epidural or if has surgery. (4) Rubella non-immune status, antepartum: COMMENT: reviewed precautions, recommend MMR (5) False positive test for syphilis: COMMENT: send out RPR non reactive, APL panel negative. (6) Oligohydramnios in third trimester: PLAN: Plan Patient presents IOL, plan management for with pit and FB. Pain management: prefers minimal intervention. GBS negative. Management of any complications: vWD- plan TXA delivery, DDAVP if epidurla or needs csection I have reviewed the [facility] and made any clinically relevant updates.
[2023-10-28] MEDS: Lactated Ringers 1,000 ML 999 ML IV ×2 (18:44)
[2023-10-28 20:11] LABS: Syphilis Antibodies Reactive
[2023-10-28] MEDS: Oxytocin 15 Units/NS 250ml 15 UNITS/250 ML IV.SOLN 2 UNITS IV (23:50)
[2023-10-29] VITALS (35 sets, daily range): BP systolic 96–133; BP diastolic 55–79; PULSE 76–113; RESP 15–20; TEMP 36.2–37.1; O2SAT 98–100
[2023-10-29] MEDS: Lactated Ringers 1,000 ML 50 ML IV (05:25)
[2023-10-29] MEDS: Ondansetron 4 MG/2 ML Vial IV (05:39)
--- NOTE | 2023-10-29 05:41 | PCM.PN.BLA ---
Progress Note arom clear fluid, -/-1, pit per protocol, coping appropriately. cat I tracing. exp management
[2023-10-29] MEDS: TRANEXAMIC ACID 1,000 MG in 0.9% Normal Saline (100mL Bag) 100 ML 440 MG IV (06:27)
[2023-10-29] MEDS: Oxytocin 15 Units/NS 250ml 15 UNITS/250 ML IV.SOLN 334 UNITS IV (07:00)
[2023-10-29] MEDS: Lidocaine 1% (20 ml mdv) 20 ML Vial INFILT (07:06)
[2023-10-29] MEDS: Oxytocin 15 Units/NS 250ml 15 UNITS/250 ML IV.SOLN 83 UNITS IV (07:45)
--- NOTE | 2023-10-29 07:53 | EX.PCM.OBRPT ---
Assessment & Plan (1) Oligohydramnios in third trimester: (2) False positive test for syphilis: COMMENT: send out RPR non reactive, APL panel negative. (3) Rubella non-immune status, antepartum: COMMENT: reviewed precautions, recommend MMR (4) Von Willebrand disease: COMMENT: heme onc referral to [facility], DDAVP not indicated per them. plan TXA at delivery. plan anesthesia consult- DDAVP if desires epidural or if has surgery. (5) Supervision of high-risk : QUALIFIERS: Trimester: third trimester Qualified Code(s): O09.93 - Supervision of high risk , unspecified, third trimester COMMENT: PRR , ROBBIE 10/27/23, surprise Guerda (6) : QUALIFIERS: Weeks of gestation: 40 weeks Qualified Code(s): Z3A.40 - 40 weeks gestation of COMMENT: declined genetic & ntd, carrier testing. nl anatomy (7) Vaginal delivery: COMMENT: SM IAL 40 oligo girl Luana Maternal Data Information ROBBIE Calculator Estimated Delivery Date Method Current WG Current Estimate 10/27/23 LMP (Certain) 40w 2d Vaginal Delivery Operative Information Date of Procedure: 10/29/23 Pre-Operative Diagnosis: see a/p diagnoses Post-Operative Diagnosis: same Surgery / Procedure Performed: Spontaneous Vaginal Delivery Type of Anesthesia: Local with 1% Lidocaine Special Medications: none Estimated Blood Loss: 400 Fluids Replaced: crystalloid Findings Description of Procedure: Patient began pushing and delivered the head in the NATAN presentation. The head was delivered atraumatically and a loose nuchal cord ?1 was identified and the delivered through without complication. The anterior and posterior shoulders delivered without complication followed by the rest of the infant and the was placed on the maternal abdomen. Delayed cord clamping was employed for approximately 60 seconds. Cord was clamped and cut and gentle traction was applied to the cord and the placenta delivered spontaneously immediately following it was noted to be intact with three-vessel cord. The perineum and vagina were inspected and injected with lidocaine, noted to have a first degree perineal laceration which was repaired in the usual fashion with 3-0 vicryl rapide. . EBL was 400, TXA and pitocin given immediately after of the baby. Patient and tolerated delivery well. Amniotic Fluid Description: Clear Placental Delivery Description: Spontaneous Placenta Disposition: [facility] Cord Vessel Description: 3 Vessels Cord Entanglement: Around neck x 1, loose Delayed Cord Clamping: Yes Post Vaginal Delivery Medications Given After Delivery: IV Pitocin Episiotomy Description: None Complication Complications: None Procedures Urinary/Genital [id number]: [id number] Vaginal Delivery [facility]
--- NOTE | 2023-10-29 07:57 | DCINST_ITS ---
Discharge Instructions Diet Discharge Diet: No restrictions Activity Discharge Activity: Return to Normal Activity, May Not Drive (while taking narcotic pain medications.) and May Shower May resume sexual activity in: 4-6 weeks Dressing / Incision Call your doctor if your incision/area has: Continuous Slow Oozing, Sudden Increased Bleeding, Increased Pain/ Swelling, Increased Redness and Foul Smelling Discharge Follow Up Care Please Follow Up With: Quynh Billy MD When: Call [phone] to make an appointment with your doctor in 6 weeks. If you had elevated blood pressure or 4th degree laceration, you will need to be seen in 2 weeks. Test Results: Test results from this visit will be discussed in further detail at your follow- up appointment, if applicable. Discharge Plan Admission Admit Date/Time: 10/28/23 15:04 Attending Provider: Quynh Billy Primary Care Provider: Marko Bassett Discharge Orders/Prescriptions Prescriptions: No Action PNV Tabs 20-1 20 mg iron- 1 mg tablet 1 tab PO DAILY Referrals / Follow Up: Marko Bassett DO [Primary Care Provider] - Disposition Disposition (needs filled in before D/C Order can be placed): Home, Self Care
[2023-10-29] MEDS: Acetaminophen 500 MG Tablet 1000 MG PO ×2 (08:28→18:11)
[2023-10-29] MEDS: LACTATED RINGERS 500 ML 999 ML IV (11:00)
--- NOTE | 2023-10-29 11:20 | NURSING ---
1015: Pt amb to restroom with assist x 2. Pt did well until voiding pt became flushed and passed out. Nurse remained in restroom with pt and charge nurse and xtra RN x 2 came to room. Pt was assisted off the commode and pivoted onto WC. Assisted pt to bed. VS obtained 119/67-85-98%, 109/63-91-100%, 105/61-85-100%. FF-1, scant VB. Pt feeling improved laying flat in bed. Tushar DYER called at 1035 and updated on above info. New orders given.
[2023-10-29 11:22] LABS: Hematocrit 29.9 % (37-47); Hemoglobin 10.1 g/dL (12.0-15.0); Mean Corp Hgb Conc 33.8 g/dL (32-36); Mean Corpuscular Hgb 29.8 pg (27.0-32.0); Mean Corpuscular Volume 88.2 fL (81-99); Mean Platelet Vol. 10.3 fl (6.2-12.0); Platelet Count 154 K/mm3 (150-450); Red Blood Count 3.39 M/mm3 (4.2-5.4); White Blood Count 12.3 K/mm3 (4.4-11.0)
[2023-10-29] MEDS: 0.9% Saline Lock 10 ML Syringe IV (11:49)
[2023-10-30] VITALS (10 sets, daily range): BP systolic 109–122; BP diastolic 59–76; PULSE 85–202; RESP 16–18; TEMP 36–36.8; O2SAT 98–100
[2023-10-30] MEDS: Acetaminophen 500 MG Tablet 1000 MG PO ×4 (00:12→19:59)
[2023-10-30] MEDS: 0.9% Saline Lock 10 ML Syringe IV ×2 (00:21→11:11)
--- NOTE | 2023-10-30 05:08 | NURSING ---
This RN discussed pt rubella non-immune status with pt and recommended pt get MMR vaccine to help boost pt's immunity and help protect baby; pt declines vaccination at this time.
--- NOTE | 2023-10-30 07:40 | PCM.PN.OB ---
Subjective Subjective Patient doing well without complaints. Tolerating PO. Ambulating and voiding without difficulty. feeding well. Denies chest pain, shortness of breath, calf pain/swelling, fevers, chills, lightheadedness. Objective Data Objective Data Vital Signs: Vital Signs Temp Pulse Resp BP Pulse Ox O2 Del Method 98.0 F 90 18 109/59 L 98 Room Air 10/30/23 04:39 10/30/23 04:39 10/30/23 04:39 10/30/23 04:39 10/30/23 04:39 10/30/23 04:39 Oxygen Delivery Method Room Air Weight: 149 lb 7.574 oz Body Mass Index (BMI) 25.6 Intake & Output: Intake and Output for Last 24 Hours 10/28/23 10/29/23 10/30/23 23:59 23:59 23:59 Intake Total 4005.49 / 4005.49 Output Total 1150 / 1150 1300 / 1300 Balance -1150 / -1150 2705.49 / 2705.49 Lab / Micro Data 10/29/23 11:09 Labs: Laboratory Results - last 24 hr 10/29/23 11:09: WBC 12.3 H, RBC 3.39 L, Hgb 10.1 L, Hct 29.9 L, MCV 88.2, MCH 29.8, MCHC 33.8, RDW Std Deviation 42.0, RDW Coeff of Aquilino 13.0, Plt Count 154, MPV 10.3 ROS Constitutional Constitutional: Reports systems reviewed and no addt'l complaints, except as documented Cardiovascular Cardiovascular: Reports systems reviewed and no addt'l complaints, except as documented Respiratory/Chest Respiratory/Chest: Reports systems reviewed and no addt'l complaints, except as documented Gastrointestinal Gastrointestinal: Reports systems reviewed and no addt'l complaints, except as documented Physical Exam Const alert, oriented x3 and no apparent distress HEENT Head and Scalp: atraumatic Resp normal respiratory effort GI soft to palpation and non-tender Bimanual Exam - Vag & Uterus: uterus non-tender Uterus Palpation: uterus fundus firm (below Umbilicus) Assessment & Plan (1) Vaginal delivery: COMMENT: SM IAL 40 oligo girl Luana PLAN: Plan s/p PPD # 1 1. routine post delivery care 2. breast feeding- support given 3. rh positive 4. rubella immune
[2023-10-31 01:42] VITALS: BP 108/76; PULSE 95; RESP 16; TEMP 36.6; O2SAT 99
[2023-10-31] MEDS: Acetaminophen 500 MG Tablet 1000 MG PO ×2 (01:52→09:37)
--- NOTE | 2023-10-31 07:56 | PCM.PN.OB ---
Subjective Subjective Patient doing well without complaints. Tolerating PO. Ambulating and voiding without difficulty. Feeding well. Denies chest pain, shortness of breath, calf pain/swelling, fevers, chills, lightheadedness. Objective Data Objective Data Vital Signs: Vital Signs Temp Pulse Resp BP Pulse Ox O2 Del Method 97.8 F 95 16 108/76 99 Room Air 10/31/23 01:42 10/31/23 01:42 10/31/23 01:42 10/31/23 01:42 10/31/23 01:42 10/31/23 01:42 Oxygen Delivery Method Room Air Weight: 149 lb 7.574 oz Body Mass Index (BMI) 25.6 Intake & Output: Intake and Output for Last 24 Hours 10/29/23 10/30/23 10/31/23 23:59 23:59 23:59 Intake Total 4005.49 / 4005.49 Output Total 1300 / 1300 Balance 2705.49 / 2705.49 Lab / Micro Data 10/29/23 11:09 Labs: Laboratory Results - last 24 hr 10/28/23 16:57: Miscellaneous Test ROS Constitutional Constitutional: Denies chills, fatigue, fever(s), poor appetite or weakness Eyes Eyes: Denies blurry vision, change in vision, seeing flashes or spots in vision ENT HEENT: Denies dizziness, headache(s), loss taste/smell or sore throat Cardiovascular Cardiovascular: Denies chest pain, dizziness, dyspnea, irregular heart rhythm, palpitations or rapid heart rate Respiratory/Chest Respiratory/Chest: Denies chest tightness, cough, dyspnea or breast pain Gastrointestinal Gastrointestinal: Denies abdominal pain, constipation or vomiting Genitourinary Genitourinary: Denies dysuria or flank pain Musculoskeletal Musculoskeletal: Denies difficulty walking, joint pain, limited range of motion or numbness Neurologic Neurologic: Denies abnormal movements, abnormal speech, dizziness, numbness, seizure-like activity or syncope Psychiatric Psychiatric: Denies anxiety, behavioral changes, change in appetite, confusion, depression or suicidal thoughts Physical Exam Const alert, oriented x3 and no apparent distress General Appearance: cooperative and comfortable Resp normal respiratory effort Cardio regular rate GI normal to inspection, nondistended, normoactive bowel sounds GI Narrative: uterus is firm below umbilicus Palpation: soft Back/Spine no CVA tenderness and thoraco-lumbar ROM normal Extremity normal to inspection, no clubbing, cyanosis or edema, no calf tenderness and no pedal edema Psych mental status grossly normal, thought process normal, cooperative, affect normal, speech normal, activity/motor behavior normal, denies homicidal ideation and denies suicidal ideation Assessment & Plan (1) Vaginal delivery: COMMENT: MOOK IAL 40 oligo girl Luana PLAN: Plan s/p PPD # 2 1. routine post delivery care 2. breast feeding- support given 3. rh positive 4. rubella immune 5. false pos test for syhhilis 6. von willebrand dz - stable Plan for dc to home later today. follow up in office in 6 weeks.
[2023-10-31 08:30] VITALS: BP 112/72; PULSE 88; RESP 16; TEMP 36.8; O2SAT 100
== END 2023-10-31 10:15 | disposition home or self-care (01) | DRG 806 ==
LOC: WPOUT 15:14 → WP 15:14
PROVIDERS: Advanced Practice Midwife; Admitting Provider Obstetrics & Gynecology; PCP Family Medicine; Referring Provider Obstetrics & Gynecology; Visit Provider Obstetrics & Gynecology
DX: O41.03X0 Oligohydramnios, third trimester, not applicable or unspecified (principal); Z37.0 Single live birth; D68.00 Von Willebrand disease, unspecified; O99.12 Other diseases of the blood and blood-forming organs and certain disorders involving the immune mechanism complicating childbirth; O70.0 First degree perineal laceration during delivery; Z3A.40 40 weeks gestation of pregnancy; O69.81X0 Labor and delivery complicated by cord around neck, without compression, not applicable or unspecified; O48.0 Post-term pregnancy
CPT/HCPCS: 36415; 59025; 59050; 84112; 85025; 85027; 86780; 86850; 86900; 86901; 99221; J7120; A4216; G0378; J2405

== ENCOUNTER → 2023-12-13 | Outpatient (CLI) | payer OTHER, SELFPAY ==
--- OUTSIDE RECORDS SUMMARY | 2023-12-13 17:22 | XMS RPT_ITS | CCD ---
Author Organization [facility] Care Team Providers Care Chain Maker Hand Name Role Phone Marko Roe DO Primary Care Provider MARKO ROE Primary Care Unavailable NAM DENNEY Referring Unavailable MARKO ROE Primary Care Unavailable LUANA MCKNIGHT Referring Unavailable NAM DENNEY Attending Unavailable MARKO ROE Primary Care Unavailable Allergies Allergy Classification Reported Allergen(s) Allergy Type Date of Onset Reaction(s) Facility (3 sources) Erythromycin; Translations: [ERYTHROMYCIN] Drug Allergy 05-06-2023 Vomiting [facility] Medications Completed/Discontinued Medications Medication Drug Class(es) Dates Sig (Normalized) Sig (Original) OTC NUTRITIONAL SUPPLEMENT (2 sources) take 1 tablet by mouth once daily OTC NUTRITIONAL SUPPLEMENT Take 1 tablet by mouth once daily. H2 Stick Fucoyden 0 Active Comment on above: Take 1 tablet by dutch th once daily. H2 Stick Fucoyden vit no.124/iron/folic ( VITAMIN ORAL) (2 sources) take 1 tablet by mouth once daily vit no.124/iron/folic ( VITAMIN ORAL) Take 1 tablet by mouth once daily. 0 Active Comment on above: Take 1 tablet by dutch th once daily. Problems Problem Classification Problem Date Documented Da te Episodic/Chronic Residual codes; unclassified (1 source) Family history of Von Willebrand disease; Translations: [Family history of diseases of the blood and blood-forming organs and certain disorders involving the immune mechanism] 05-06-2023 Episodic Residual codes; unclassified (1 source) Gestation period, 15 weeks; Translations: [15 weeks gestation of ] 05-06-2023 Episodic Residual codes; unclassified (1 source) Family history of diseases of the blood and blood-forming organs and certain disorders involving the immune mechanism; Translations: [Family history of von Willebrand disease] Onset: 05-08-2023 Episodic Residual codes; unclassified (1 source) 15 weeks gestation of ; Translations: [15 weeks gestation of ] Onset: 05-08-2023 Episodic Results Test Name Value Interpretation Reference Range Flor Costello 05-14-2023 CNPN Telephone (BOBBY) KANIKAELYSE ([id number]) 4 F Date Time Provider Department 05/14/23 NAM DENNEY During your visit today, we recorded the following information about you: Nam Denney DO 05/14/2023 2:26 PM Signed Can let her know that the von Willebrand testing showed no evidence of von Willebrand disease. She may have mild von Willebrand's disease but typically during von Willebrand protein increases which may have led to the normal results. Nonetheless she is not at increased risk of bleeding issues from von Willebrand's. No treatment indicated. Please fax a copy of this note as well as all the lab work I had ordered to Dr. Martin at [facility]. DO Kevin Thibodeaux Kara, LPN 05/14/2023 3:47 PM Signed Information faxed as directed. Pt notified. Pt is asking if she can forgo the ddAVP prescription. GUADALUPE Cisneros Paul A, DO 05/14/2023 4:18 PM Signed Correct. She does not need ddAVP. DO eKvin Thibodeaux Kara, LPN 05/14/2023 4:23 PM Signed Pt notified. She requested copies of her labs, faxed. Silke Brown LPN Allergies As of Date: 05/14/2023 Noted Allergy Reaction ERTHROMYCIN (ERYTHROMYCIN) 05/06/2023 11 - Vomiting Date Reviewed: 05/06/2023 Reviewed by: Jens Soria MA - Fully Assessed Reason for Visit: Results [95] Prescriptions as of 05/14/2023 - vit no.124/iron/folic ( VITAMIN ORAL) Take 1 tablet by mouth once daily. - OTC NUTRITIONAL SUPPLEMENT Take 1 tablet by mouth once daily. H2 Stick Fucoyden Problem List As Of Date: 05/14/2023 (None) Encounter Status:Closed by SILKE BROWN on 05/14/23 Normal [facility] Hematocrit Auto (Bld) [Volum e fraction]on 05-08-2023 Hematocrit (Bld) [Volume fraction] 35.9 % Low 36.0-46.0 [facility] Comment on above: Order Comment: Karan patrick Type: BLOOD SPECIMEN Ordering Facility: [facility] Address: [address] [place] [address] Performed By: #### 4 544-3, 777-3 #### [facility] CLIA [id number] [address] [place] [address] [place] PLATELET FUNCTION SCon 05-07 Platelet function (closure time) collagen+ADP induced (Bld) [Time] 95 CT (seconds) Normal <118 [facility] Comment on above: Order Comment: Karan patrick Type: BLOOD SPECIMEN Ordering Facility: [facility] Address: [address] [place] [address] Performed By: #### P LTSCN #### [facility] CLIA [id number] [address] [place] [address] [place] Platelet function (closure time) collagen+EPINEPHri ne induced (Bld) [Time] 110 CT (seconds) Normal <194 [facility] Comment on above: Order Comment: Karan patrick Type: BLOOD SPECIMEN Ordering Facility: [facility] Address: [address] [place] [address] Performed By: #### P LTSCN #### [facility] CLIA [id number] [address] [place] [address] [place] PT panel Coag (PPP)on 2023 INR Coag (PPP) [Relative time] 1.0 {INR} Normal 0.9-1.3 [facility] Comment on above: Order Comment: Karan patrick Type: BLOOD SPECIMEN Ordering Facility[facility] Address: [address] [place] [address] Result Comment: Jazz min K Antagonist (VKA) Therapeutic Range: INR 2 to 3 (Target INR of 2.5) Note: For patients treated with VKA drugs, such as warfarin, the [place] [employer] 2012 Guideline recommends a therapeutic INR range of 2 to 3 (target INR of 2.5). This recommendation includes high-risk patients with antiphospholipid syndrome with previous arterial or venous thromboembolism, current-generation mechanical or bioprosthetic aortic heart valve replacement. Note: Patients with mechanical aortic valve replacement and additional risk factors for thromboembolic events (atrial fibrillation, previous thromboembolism, LV dysfunction, hypercoagulable conditions) or an older generation mechanical AVR (i.e., ball in-Cage) or any mechanical MVR should have a INR therapeutic range of 2.5 to 3.5 (target INR of 3). Roslyn GH, et al. Chest 2012, 141:7S-47S Alejandro RA, et al. [facility] 2017, 70: 252-289 Performed By: #### 3 4528-0, 21196-5 #### [facility] [id number] [address] [place] [address] [place] PT Coag (PPP) [Time] 10.2 s Normal <13.1 [facility] Comment on above: Order Comment: Karan patrick Type: BLOOD SPECIMEN Order[facility] Address: [address] [place] [address] Performed By: #### 3 4528-0, 83186-4 #### [facility] CLIA [id number] [address] [place] [address] [place] Platelets Auto (Bld) [#/Vol] on 05-08-2023 Platelets (Bld) [#/Vol] 181 10*3/uL Normal 150-400 [facility] Comment on above: Order Comment: Karan patrick Type: BLOOD SPECIMEN Ordering Facility: [facility] Address: [address] [place] [address] Performed By: #### 4 544-3, 777-3 #### [facility] CLIA [id number] [address] [place] [address] [place] VON WILLEBRAND PNL (VWFPN)on 05-08-2023 Bound rFVIII/vWf Ag IA (P) [Relative ratio] 1.3 Normal >=0.5 [facility] Comment on above: Order Comment: Speci men Type: BLOOD SPECIMEN Ordering Facility[facility] Address: [address] [place] [address] Performed By: #### L [id number] #### [facility] CLIA [id number] [address] [place] [address] [place] Coagulation factor VIII activity actual/normal Coag (PPP) [Relative time] 108 % Normal 50-173 [facility] Comment on above: Order Comment: Speci men Type: BLOOD SPECIMEN Ordering Facility: [facility] Address: [address] [place] [address] Performed By: #### L [id number] #### [facility] CLIA [id number] [address] [place] [address] [place] Platelet aggregation ristocetin induced Ql (PRP) Normal dose response Normal Normal dose response [facility] Comment on above: Order Comment: Speci men Type: BLOOD SPECIMEN Ordering Facility: [facility] Address: [address] [place] [address] Performed By: #### L [id number] #### [facility] CLIA [id number] [address] [place] [address] [place] vWf Ag actual/normal IA (PPP) [Relative mass conc] 84 % Normal 50-173 [facility] Comment on above: Order Comment: Pami men Type: BLOOD SPECIMEN Ordering Facility: [facility] Address: [address] [place] [address] Performed By: #### L [id number] #### [facility] CLIA [id number] [address] [place] [address] [place] vWf multimers Ql (PPP) Normal [facility] Comment on above: Order Comment: Karan patrick Type: BLOOD SPECIMEN Ordering Facility: [facility] Address: [address] [place] [address] Result Comment: Assa y of von Willebrand multimers was performed by an agarose gel electrophoresis followed by immunofixation with anti-von Willebrand factor antiserum. There is a normal multimer intensity with a normal distribution of multimer sizes. Reviewed by Angela Mena M.D., Ph.D. Performed By: #### L [id number] #### [facility] CLIA [id number] [address] [place] [address] [place] vWf ristocetin cofactor act/vWf Ag (PPP) [Ratio] 1.2 Normal >=0.5 [facility] Comment on above: Order Comment: Karan patrick Type: BLOOD SPECIMEN Ordering Facility: [facility] Address: [address] [place] [address] Performed By: #### L [id number] #### [facility] CLIA [id number] [address] [place] [address] OF [place] vWf ristocetin cofactor Qn (PPP) 98 % Normal 42-146 [facility] Comment on above: Order Comment: Karan patrick Type: BLOOD SPECIMEN Ordering Facility: [facility] Address: [address] [place] [address] Result Comment: This test was developed and its performance characteristics determined by [facility]'s [facility] [place] ([facility]). It has not been cleared or approved by the FDA. [facility] is regulated under CLIA as qualified to perform high-complexity testing. This test is used for clinical purposes. It should not be regarded as investigational or for research. Performed By: #### L [id number] #### [facility] CLIA [id number] [address] [place] [address] [place] vWf.collagen binding activity actual/normal IA (PPP) [Relative ratio] 65 % Normal 41-161 [facility] Comment on above: Order Comment: Karan patrick Type: BLOOD SPECIMEN [facility] Address: [address] [place] [address] Result Comment: This test was developed and its performance characteristics determined by [facility] [place] ([facility]). It has not been cleared or approved by the FDA. -[facility] is regulated under CLIA as qualified to perform high-complexity testing. This test is used for clinical purposes. It should not be regarded as investigational or for research. Performed By: #### L [id number] #### [facility] CLIA [id number] [address] [place] [address] [place] vWf.collagen binding activity/vWf Ag IA (PPP) [Ratio] 0.8 Normal >=0.6 [facility] Comment on above: Order Comment: Karan patrick Type: BLOOD SPECIMEN Ordering Facility[facility] Address: [address] [place] [address] Performed By: #### L [id number] #### [facility] CLIA [id number] [address] [place] [address] [place] aPTT PPPon 05-08-2023 aPTT Coag (PPP) [Time] 29.4 s Normal 23.0-32.4 [facility] Comment on above: Order Comment: Karan patrick Type: BLOOD SPECIMEN Ordering Facility: [facility] Address: [address] [place] [address] Performed By: #### 3 4528-0, 90436-6 #### [facility] CLIA [id number] [address] [place] [address] [place] CNOVSPon 05-06-2023 CNOVSP Visit (SP) Office (HEMAWS) ELYSE GUILLAUME ([id number]) 4 F Date Time Provider Department 05/06/23 11:10 AM NAM DENNEY HEMAWS During your visit today, we recorded the following information about you: Temperature Pulse Blood pressure Weight 98.9 degrees 103/minute 109/72 54.4 kg Height 1.645 m Nam Denney DO 05/06/2023 12:12 PM Signed Patient referred by Dr. Martin for vWD. The impression and plan will be communicated by way of the shared electronic record or faxed under separate cover letter. HPI: The patient is a 22-year-old female 15 wks who is referred for evaluation of vWD. Presented to the ED at [facility] 03/02/2023 with complaints of lower abdominal and back pain as well as spotting. At that time she was approximately 6 weeks . CBC demonstrated a white count of 5300. Hemoglobin 13.6 g/dL with a platelet count of 194,000. PT was slightly prolonged at 15.1 seconds. INR was 1.2. HIV screen and hepatitis B and C screening negative. An obstetrical ultrasound was performed. Demonstrated living intrauterine 6 weeks and 3 days. 3.8 cm left ovarian theca lutein cyst. Von Willebrand antigen was 42% and the assay of von Willebrand multimers demonstrated normal multiple or intensity with normal distribution of multimer sizes. When obtained on 12/07/2022. Sister has vWD. History of regular menses. Occasional dime sized or smaller clots. Didn't think menses were particularly heavy. Lasted about 6 days. Heaviest flow around day 2-3. Had about 3-4 dental extractions at different times. No excessive bleeding following. No prior surgeries. No spotting since ED visit 02/2023 noted above. History reviewed. No pertinent past medical history. History reviewed. No pertinent surgical history. ALLERGIES Allergen Reactions Erthromycin [Erythr* Vomiting Current Outpatient Medications Medication Sig vit no.124/iron/folic ( VITAMIN ORAL) Take 1 tablet by mouth once daily. OTC NUTRITIONAL SUPPLEMENT Take 1 tablet by mouth once daily. H2 Stick Fucoyden No current facility-administered medications for this visit. Social History Tobacco Use Smoking status: Never Smokeless tobacco: Never Vaping Use Vaping Use: Never used Substance Use Topics Alcohol use: Never Drug use: Never Family History Problem Relation Age of Onset No Known Problems Mother Hypertension Father other (Von Wildebrand) Sister No Known Problems Sister No Known Problems Sister No Known Problems Sister No Known Problems Brother No Known Problems Brother No Known Problems Brother Heart Maternal Grandfather Hypertension Paternal Grandmother Colon Cancer Paternal Grandfather Heart Paternal Grandfather ROS: Constitutional: No fever. No drenching night sweats. Normal appetite. No unexplained weight loss. No significant fatigue. Neuro: No recent PRUITT, vertigo, dizziness or imbalance. No symptoms of sensory neuropathy. HEENT: No recent change in voice, vision or hearing. Resp: No cough, wheeze of hemoptysis. No shortness of breath at rest. No [place]. CVS: No exertional chest pain, PND or orthopnea. No extremity swelling/edema. No symptoms of claudication. No painful or tender varicose veins. GI: No dysgeusia. No symptoms of stomatitis. No dysphagia or odynophagia. No reflux, n/v, change in bowel habits. No abdominal pain, bloating or distension. No black or bloody stools. : No dysuria or gross hematuria. No symptoms of bladder outlet obstruction. Endo: No hot flashes. No polyuria or polydipsia. No heat or cold intolerance. Musculoskeletal: No bone, back, joint and muscular pain. Derm: No current rash. No history of jaundice. No diffuse pruritis. Heme: No unusual bleeding and unexplained bruising. Psych: Normal mood. PHYSICAL EXAM: Vitals: Blood pressure 109/72, pulse 103, temperature 37.2 ?C (98.9 ?F), height 164.5 cm (5' 4.76 ), weight 54.4 kg (120 lb), SpO2 100%. Well-appearing and in no acute distress. EYES: Sclerae are anicteric bilaterally. ENT: Oral mucosa is unremarkable. Evidence of for prior tooth extractions. LYMPHATIC: There is no palpable cervical, supraclavicular adenopathy. RESPIRATORY: Inspiratory breath sounds are of normal intensity in all agudelo. No rales, wheezes or rhonchi. Expiratory phase is normal. CARDIOVASCULAR: Rhythm is regular. ABDOMEN: No splenomegaly or hepatomegaly. Extremities: No swelling or edema. SKIN: No jaundice. No petechiae. ASSESSMENT/PLAN: (Z83.2) Family history of von Willebrand disease (primary encounter diagnosis) (Z3A.15) 15 weeks gestation of Assessment: -The patient is a 22-year-old 1 para 0 at 15 weeks gestation who has a sister who was diagnosed with type I von Willebrand disease and is currently due for delivery in July (was given Rx for ddAVP na (more content not included)... Normal [facility] CNPNon 04-19-2023 CNPN Telephone (BOBBY) ELYSE GUILLAUME ([id number]) 4 F Date Time Provider Department 04/19/23 ELOY VALE During your visit today, we recorded the following information about you: Miracle Rush 04/19/2023 8:48 AM Signed Received a new patient referral. Need to finish registration when she calls for her insurance. Patient DX. CODE VON WILLEBRAND Kasia Faulkner 04/19/2023 10:36 AM Signed Patient returned call scheduled first opening Dr Denney on 05/06/23 Dr Luana Mcknight [facility] Allergies As of Date: 04/19/2023 (Not on File) Date Reviewed: Never Reviewed Reason for Visit: Appointment [186] Problem List As Of Date: 04/19/2023 (None) Encounter Status:Closed by MIRACLE RUSH on 04/26/23 [facility] Vital Signs Date Time Vital Sign Value Performing Clinician Evin tejeda 05-06-2023 11:27-0400 Body height 164.5 cm Nam Denney DO Work Phone: [facility] 05-06-2023 11:27-0400 Body temperature 98.91 [degF] Nam Gregoryi DO Work Phone: [facility] 05-06-2023 11:27-0400 Body weight 54.43 kg Nam Gregoryi DO Work Phone: [facility] 05-06-2023 11:27-0400 Diastolic blood pressure 72 mm[Hg] Nam Masci DO Work Phone: [facility] 05-06-2023 11:27-0400 Heart rate 103 /min Nam Gregoryi DO Work Phone: [facility] 05-06-2023 11:27-0400 SaO2% (BldA) [Mass fraction] 100 % Nam Gregoryi DO Work Phone: [facility] 05-06-2023 11:27-0400 Systolic blood pressure 109 mm[Hg] Nam Gregoryi DO Work Phone: [facility] Encounters Encounter Date Encounter Type Care Provider Facility Start: 05-14-2023 Telephone encounter Nam anderson DO Work Phone: Hematology/Oncology Comment on above: Results Start: 05-08-2023 End: 05-09-2023 ambulatory MARKO ROE Facility:[facility] Start: 05-06-2023 End: 05-07-2023 ambulatory NAM DENNEY Facility:[facility] Start: 05-06-2023 End: 05-06-2023 ambulatory Nam Denney DO Work Phone: Hematology/Oncology Comment on above: Family history of vo n Willebrand disease (Primary Dx); 15 weeks gestation of Start: 05-06-2023 End: 05-06-2023 Patient encounter procedure Nam Denney DO Work Phone: [facility] Start: 04-19-2023 Telephone encounter Eloy redmond MD Work Phone: Hematology/Oncology Comment on above: Appointment Plan of Treatment Date Care Activity Detail Author Start: 05-06-2023 End: 08-05-2023 CBC W Auto Differential panel - Blood CBC + DIFF Lab Routine Family history of von Willebrand disease 15 weeks gestation of Expected: 05/06/2023, Expires: 08/05/2023 [facility] Work Phone: Comment on above: Expected: 05/06/2023 , Expires: 08/05/2023 Start: 05-06-2023 End: 08-05-2023 VON WILLEBRAND DX PANEL VON WILLEBRAND DX PANEL Lab Routine Family history of von Willebrand disease 15 weeks gestation of Expected: 05/06/2023, Expires: 08/05/2023 [facility] Work Phone: Comment on above: Expected: 05/06/2023 , Expires: 08/05/2023 Start: 02-18-2023 Depression Assessment Depression Ass essment [facility] Start: 10-19-2022 Covid-19 Vaccine ( season) Covid-19 Vaccine ( season) [facility] Start: 10-19-2022 Influenza vaccination Influenza Vacc ine (#1) [facility] Start: 2021 Hepatitis B Vaccine (1 of 3 - 19+ 3-dose series) Hepatitis B Vaccine (1 of 3 - 19+ 3-dose series) [facility] Start: 2021 Urine microalbumin profile DTaP,Tdap,Td Vaccine (1 - Tdap) [facility] Start: 2020 GC (Gonorrhea) Scree jairon (18-24) GC (Gonorrhea) Screening (18-24) [facility] Start: 2020 Hepatitis C screening Hepatitis C Sc reening [facility] Start: 2020 HIV screening HIV Screening [facility] Start: 2020 Screening for Chlamy gomez trachomatis Chlamydia Screening (18-) [facility] Start: 2017 HPV Vaccine (1 - 3-d ose series) HPV Vaccine (1 - 3-dose series) [facility] Start: 2016 Peds To Adult Transi tion Annual Assessment Peds To Adult Transition Annual Assessment [facility] Start: 2014 Peds To Adult Transi tion Initial Discussion Peds To Adult Transition Initial Discussion [facility] Start: 07-30-2012 HPV Vaccine (1 - 2-d ose series) HPV Vaccine (1 - 2-dose series) [facility] Start: 03-19-2003 Covid-19 Vaccine (#1) Covid-19 Vacci ne (#1) [facility] Start: 2002 Hepatitis B Vaccine (1 of 3 - 3-dose series) Hepatitis B Vaccine (1 of 3 - 3-dose series) [facility] Payers Date Payer Category Payer Unknown [facility] 93 2002-Present [id number] [place] [address] Indemnity [id number] 2002 Unknown 93 Social History Date Type Detail Facility Tobacco smoking stat [facility] Tobacco smoking consumption unknown [facility] Start: 2002 Sex Assigned At Female [facility] Start: 04-19-2023 Gender identity Identifies as female gender (finding) [facility] Start: 04-19-2023 Sexual orientation Don't know [facility] Start: 05-06-2023 Tobacco smoking stat [facility] Never smoked tobacco [facility] Start: 05-06-2023 Tobacco use and exposure Smoke less tobacco non-user [facility] Start: 05-06-2023 Alcohol intake Lifetime non-d sasha (finding) [facility] Start: 05-06-2023 History of Social function [facility] National Score (1-10 0), lower number is lower risk 47 [facility] Note 05-14-2023 Telephone Encounter - Silke Brown LPN - 05/14/2023 4:22 PM EDTTelephone Encounter - Nam Denney DO - 05/14/2023 4:17 PM EDTTelephone Encounter - Silke Brown LPN - 05/14/2023 3:37 PM EDT Note Date & Type Note Facility 05-14-2023 Miscellaneous Notes Formattin g of this note might be different from the original. Pt notified. She requested copies of her labs, faxed. Silke Brown LPN Correct. She does not need ddAVP. Nam Denney DO Information faxed as directed. Pt notified. Pt is asking if she can forgo the ddAVP prescription. Silke Brown LPN Can let her know that the von Willebrand testing showed no evidence of von Willebrand disease. She may have mild von Willebrand's disease but typically during von Willebrand protein increases which may have led to the normal results. Nonetheless she is not at increased risk of bleeding issues from von Willebrand's. No treatment indicated. Please fax a copy of this note as well as all the lab work I had ordered to Dr. Martin at [facility]. Nam Denney DO documented in this encounter [facility] Progress note 05-06-2023 Note Date & Type Note Facility 05-06-2023 Note HNO ID: [id number] Author: NAM DENNEY DO Service: ? Author Type: Physician Type: Progress Notes Filed: 05/06/2023 12:12 Note Text: Patient referred by Dr. Martin for vWD. The impression and plan will be communicated by way of the shared electronic record or faxed under separate cover letter. HPI: The patient is a 22-year-old female 15 wks who is referred for evaluation of vWD. [facility] [facility] with complaints of lower abdominal and back pain as well as spotting. At that time she was approximately 6 weeks . CBC demonstrated a white count of 5300. Hemoglobin 13.6 g/dL with a platelet count of 194,000. PT was slightly prolonged at 15.1 seconds. INR was 1.2. HIV screen and hepatitis B and C screening negative. An obstetrical ultrasound was performed. Demonstrated living intrauterine 6 weeks and 3 days. 3.8 cm left ovarian theca lutein cyst. Von Willebrand antigen was 42% and the assay of von Willebrand multimers demonstrated normal multiple or intensity with normal distribution of multimer sizes. When obtained on 12/07/2022. Sister has vWD. History of regular menses. Occasional dime sized or smaller clots. Didn't think menses were particularly heavy. Lasted about 6 days. Heaviest flow around day 2-3. Had about 3-4 dental extractions at different times. No excessive bleeding following. No prior surgeries. No spotting since ED visit 02/2023 noted above. History reviewed. No pertinent past medical history. History reviewed. No pertinent surgical history. ALLERGIES Allergen Reactions Erthromycin [Erythr* Vomiting Current Outpatient Medications Medication Sig vit no.124/iron/folic ( VITAMIN ORAL) Take 1 tablet by mouth once daily. OTC NUTRITIONAL SUPPLEMENT Take 1 tablet by mouth once daily. H2 Stick [place] No current facility-administered medications for this visit. Social History Tobacco Use Smoking status: Never Smokeless tobacco: Never Vaping Use Vaping Use: Never used Substance Use Topics Alcohol use: Never Drug use: Never Family History Problem Relation Age of Onset No Known Problems Mother Hypertension Father other (Von Wildebrand) Sister No Known Problems Sister No Known Problems Sister No Known Problems Sister No Known Problems Brother No Known Problems Brother No Known Problems Brother Heart Maternal Grandfather Hypertension Paternal Grandmother Colon Cancer Paternal Grandfather Heart Paternal Grandfather ROS: Constitutional: No fever. No drenching night sweats. Normal appetite. No unexplained weight loss. No significant fatigue. Neuro: No recent PRUITT, vertigo, dizziness or imbalance. No symptoms of sensory neuropathy. HEENT: No recent change in voice, vision or hearing. Resp: No cough, wheeze of hemoptysis. No shortness of breath at rest. No LANGFORD. CVS: No exertional chest pain, PND or orthopnea. No extremity swelling/edema. No symptoms of claudication. No painful or tender varicose veins. GI: No dysgeusia. No symptoms of stomatitis. No dysphagia or odynophagia. No reflux, n/v, change in bowel habits. No abdominal pain, bloating or distension. No black or bloody stools. : No dysuria or gross hematuria. No symptoms of bladder outlet obstruction. Endo: No hot flashes. No polyuria or polydipsia. No heat or cold intolerance. Musculoskeletal: No bone, back, joint and muscular pain. Derm: No current rash. No history of jaundice. No diffuse pruritis. Heme: No unusual bleeding and unexplained bruising. Psych: Normal mood. PHYSICAL EXAM: Vitals: Blood pressure 109/72, pulse 103, temperature 37.2 ?C (98.9 ?F), height 164.5 cm (5' 4.76 ), weight 54.4 kg (120 lb), SpO2 100%. Well-appearing and in no acute distress. EYES: Sclerae are anicteric bilaterally. ENT: Oral mucosa is unremarkable. Evidence of for prior tooth extractions. LYMPHATIC: There is no palpable cervical, supraclavicular adenopathy. RESPIRATORY: Inspiratory breath sounds are of normal intensity in all agudelo. No rales, wheezes or rhonchi. Expiratory phase is normal. CARDIOVASCULAR: Rhythm is regular. ABDOMEN: No splenomegaly or hepatomegaly. Extremities: No swelling or edema. SKIN: No jaundice. No petechiae. ASSESSMENT/PLAN: (Z83.2) Family history of von Willebrand disease (primary encounter diagnosis) (Z3A.15) 15 weeks gestation of Assessment: -The patient is a 22-year-old 1 para 0 at 15 weeks gestation who has a sister who was diagnosed with type I von Willebrand disease and is currently due for delivery in July (was given Rx for ddAVP nasal spray). -Patient had low total von Willebrand antigen when tested approximately 2 to 3 months prior to . Multimers demonstrated normal pattern with normal staining intensity. -No history of prior excessive bleeding after dental extraction. Subjectively no heavy menses. Plan: (more content not included)... [facility] History of Present illness Narrative 05-06-2023 Nam Denney DO - 05/06/2023 11:17 AM EDT Note Date & Type Note Facility 05-06-2023 History of Presen t illness Narrative Patient referred by Dr. Martin for vWD. The impression and plan will be communicated by way of the shared electronic record or faxed under separate cover letter. HPI: The patient is a 22-year-old female 15 wks who is referred for evaluation of vWD. Presented to the ED at [facility] 03/02/2023 with complaints of lower abdominal and back pain as well as spotting. At that time she was approximately 6 weeks . CBC demonstrated a white count of 5300. Hemoglobin 13.6 g/dL with a platelet count of 194,000. PT was slightly prolonged at 15.1 seconds. INR was 1.2. HIV screen and hepatitis B and C screening negative. An obstetrical ultrasound was performed. Demonstrated living intrauterine 6 weeks and 3 days. 3.8 cm left ovarian theca lutein cyst. Von Willebrand antigen was 42% and the assay of von Willebrand multimers demonstrated normal multiple or intensity with normal distribution of multimer sizes. When obtained on 12/07/2022. Sister has vWD. History of regular menses. Occasional dime sized or smaller clots. Didn't think menses were particularly heavy. Lasted about 6 days. Heaviest flow around day 2-3. Had about 3-4 dental extractions at different times. No excessive bleeding following. No prior surgeries. No spotting since ED visit 02/2023 noted above. History reviewed. No pertinent past medical history. History reviewed. No pertinent surgical history. ALLERGIES Allergen Reactions Erthromycin [Erythr* Vomiting Current Outpatient Medications Medication Sig vit no.124/iron/folic ( VITAMIN ORAL) Take 1 tablet by mouth once daily. OTC NUTRITIONAL SUPPLEMENT Take 1 tablet by mouth once daily. H2 Stick Fuc[place]den No current facility-administered medications for this visit. Social History Tobacco Use Smoking status: Never Smokeless tobacco: Never Vaping Use Vaping Use: Never used Substance Use Topics Alcohol use: Never Drug use: Never Family History Problem Relation Age of Onset No Known Problems Mother Hypertension Father other (Von Wildebrand) Sister No Known Problems Sister No Known Problems Sister No Known Problems Sister No Known Problems Brother No Known Problems Brother No Known Problems Brother Heart Maternal Grandfather Hypertension Paternal Grandmother Colon Cancer Paternal Grandfather Heart Paternal Grandfather ROS: Constitutional: No fever. No drenching night sweats. Normal appetite. No unexplained weight loss. No significant fatigue. Neuro: No recent PRUITT, vertigo, dizziness or imbalance. No symptoms of sensory neuropathy. HEENT: No recent change in voice, vision or hearing. Resp: No cough, wheeze of hemoptysis. No shortness of breath at rest. No LANGFORD. CVS: No exertional chest pain, PND or orthopnea. No extremity swelling/edema. No symptoms of claudication. No painful or tender varicose veins. GI: No dysgeusia. No symptoms of stomatitis. No dysphagia or odynophagia. No reflux, n/v, change in bowel habits. No abdominal pain, bloating or distension. No black or bloody stools. : No dysuria or gross hematuria. No symptoms of bladder outlet obstruction. Endo: No hot flashes. No polyuria or polydipsia. No heat or cold intolerance. Musculoskeletal: No bone, back, joint and muscular pain. Derm: No current rash. No history of jaundice. No diffuse pruritis. Heme: No unusual bleeding and unexplained bruising. Psych: Normal mood. PHYSICAL EXAM: Vitals: Blood pressure 109/72, pulse 103, temperature 37.2 C (98.9 F), height 164.5 cm (5' 4.76 ), weight 54.4 kg (120 lb), SpO2 100%. Well-appearing and in no acute distress. EYES: Sclerae are anicteric bilaterally. ENT: Oral mucosa is unremarkable. Evidence of for prior tooth extractions. LYMPHATIC: There is no palpable cervical, supraclavicular adenopathy. RESPIRATORY: Inspiratory breath sounds are of normal intensity in all agudelo. No rales, wheezes or rhonchi. Expiratory phase is normal. CARDIOVASCULAR: Rhythm is regular. ABDOMEN: No splenomegaly or hepatomegaly. Extremities: No swelling or edema. SKIN: No jaundice. No petechiae. ASSESSMENT/PLAN: (Z83.2) Family history of von Willebrand disease (primary encounter diagnosis) (Z3A.15) 15 weeks gestation of Assessment: -The patient is a 22-year-old 1 para 0 at 15 weeks gestation who has a sister who was diagnosed with type I von Willebrand disease and is currently due for delivery in July (was given Rx for ddAVP nasal spray). -Patient had low total von Willebrand antigen when tested approximately 2 to 3 months prior to . Multimers demonstrated normal pattern with normal staining intensity. -No history of prior excessive bleeding after dental extraction. Subjectively no heavy menses. Plan: -Von Willebrand panel. -She will be contacted with the results and plan pending the results of the above testing. I spent a total of 40 minutes on the date of the service which included preparing to see the patient, [id number] patient care, completing clinical documentation, obtaining and/or reviewing separately obtained history, performing a medically appropriate examination, counseling and educating the patient/family/caregiver, ordering medications, tests, or procedures, communicating with other HCPs (not separately reported), and communicating results to the patient/family/caregiver. Nam Denney DO documented in this encounter [facility] Note 04-19-2023 Telephone Encounter - Kasia Lazo - 04/19/2023 10:35 AM ESTTelephone Encounter - Miracle Rush - 04/19/2023 8:45 AM EST Note Date & Type Note Facility 04-19-2023 Miscellaneous Notes Formattin g of this note might be different from the original. Patient returned call scheduled first opening Dr Denney on 05/06/23 Dr Luana Mcknight [facility] Received a new patient referral. Need to finish registration when she calls for her insurance. Patient DX. CODE VON WILLEBRAND Miracle Rush documented in this encounter [facility] Evaluation note Note Date & Type Note Facility Evaluation note Diagnosis Family history of von Willebrand disease- Primary Family history of other blood disorders 15 weeks gestation of state, incidental documented in this encounter [facility] Summary Purpose Family History No Family History Records Found Advance Directives No Advanced Directives Records Found Additional Source Comments Source Comments (unrecognize d section and content) In the event this informatio n is protected by the Federal Confidentiality of Alcohol and Drug Abuse Patient Records regulations: The Federal rules restrict any use of the information to criminally investigate or prosecute any alcohol or drug abuse patient.[facility] the event this information is protected by the Federal Confidentiality of Alcohol and Drug Abuse Patient Records regulations: The Federal rules restrict any use of the information to criminally investigate or prosecute any alcohol or drug abuse patient.[facility] the event this information is protected by the Federal Confidentiality of Alcohol and Drug Abuse Patient Records regulations: The Federal rules restrict any use of the information to criminally investigate or prosecute any alcohol or drug abuse patient.[facility] Reason for Visit (unrecogniz ed section and content) Reason Comments Appointment Reason Comments New Patient Reason Comments Results Care Teams (unrecognized sec tion and content) Chain Maker Hand Relationship Specialty [place] [id number] [address] PCP - General Internal Medicine 04/19/23 Chain Maker Hand Relationship Specialty [place] [address] [id number] PCP - General Internal Medicine 04/19/23 Chain Maker Hand Relationship Specialty [place] [address] [address] PCP - General Internal Medicine 04/19/23 INFORMATION SOURCE (unrecogn ized section and content) DATE CREATED AUTHOR 05/15/2023 [facility] FOR RECORDS PERTAINING TO PATIENTS WHO ARE OR HAVE BEEN ENROLLED IN A CHEMICAL DEPENDENCY/SUBSTANCEABUSE PROGRAM, SOME INFORMATION MAY BE OMITTED. This clinical summary was aggregated from multiple sources. Caution should be exercised in using it in the provision of clinical care. This summary normalizes information from multiple sources, and as a consequence, information in this document may materially change the coding, format and clinical context of patient data. In addition, data may be omitted in some cases. CLINICAL DECISIONS SHOULD BE BASED ON THE PRIMARY CLINICAL RECORDS. [employer] [facility]. provides no warranty or guarantee of the accuracy or completeness of information in this document.
[2023-12-21 16:43] LABS: HPV Reflexed? NOT INDICATED
== END | disposition home or self-care (01) ==
LOC: LABSPEC 15:36
PROVIDERS: PCP Family Medicine; Referring Provider Obstetrics & Gynecology; Visit Provider Obstetrics & Gynecology
DX: Z12.4 Encounter for screening for malignant neoplasm of cervix (principal)
CPT/HCPCS: 88175; G0145